=== PATIENT | female | born 1950 | race Caucasian/White ===

== ENCOUNTER 2017-05-05 22:54 | Emergency (ER) | payer SELFPAY ==
[~2017-05-05] VITALS: Ht 167.6 cm; Wt 115.0 kg
[~2017-05-05 22:54] MED LIST: ALL220TA PO; TRAM50 PO
[2017-05-05 23:04] VITALS: BP 191/101; PULSE 100; RESP 18; TEMP 98.2; O2SAT 96
[2017-05-06] MEDS ORDERED: LACTCAP8 PO (01:25)
[2017-05-06] MEDS ORDERED: HYDR-3516 PO (04:11)
[2017-05-06] MEDS ORDERED: ZOFR4TAB3 SL (04:11)
== END 2017-05-06 00:47 | disposition left against medical advice (07) ==
LOC: PHED 22:54
DX: Z53.21 Procedure and treatment not carried out due to patient leaving prior to being seen by health care provider (principal)
CPT/HCPCS: 99281

== ENCOUNTER 2017-05-06 01:13 | Emergency (ER) | payer SELFPAY ==
[~2017-05-06] VITALS: Ht 167.6 cm; Wt 115.0 kg
[2017-05-06 01:17] VITALS: BP 190/98; PULSE 96; RESP 22; TEMP 98.5; O2SAT 97
[2017-05-06] MEDS ORDERED: LACTCAP8 PO (01:25)
[2017-05-06 02:09] LABS: AUTOMATED NEUTROPHIL # 10.1 TH/MM3 (1.8-7.7); BASOPHIL # 0.1 TH/MM3 (0-0.2); BASOPHIL % 0.6 % (0.0-2.0); EOSINOPHIL % 0.3 % (0.0-4.0); HEMATOCRIT 44.4 % (35.0-46.0); HEMOGLOBIN 15.3 GM/DL (11.6-15.3); LYMPH % 9.8 % (9.0-44.0); LYMPHOCYTE # 1.2 TH/MM3 (1.0-4.8); MEAN CELL VOLUME 88.1 FL (80.0-100.0); MEAN CORPUSCULAR HEMOGLOBIN 30.3 PG (27.0-34.0); MEAN CORPUSCULAR HGB CONC 34.4 % (32.0-36.0); MEAN PLATELET VOLUME 7.5 FL (7.0-11.0); MONO % 7.2 % (0.0-8.0); MONOCYTE # 0.9 TH/MM3 (0-0.9); NEUT % 82.1 % (16.0-70.0); PLATELET COUNT 305 TH/MM3 (150-450); RED BLOOD COUNT 5.04 MIL/MM3 (4.00-5.30); RED CELL DISTRIBUTION WIDTH 14.1 % (11.6-17.2); WHITE BLOOD COUNT 12.3 TH/MM3 (4.0-11.0)
[2017-05-06 02:14] LABS: BACTERIA, URINE OCC /hpf; BILIRUBIN, URINE NEG (NEG); BLOOD, URINE TRACE (NEG); GLUCOSE,URINE NEG (NEG); KETONE, URINE NEG (NEG); NITRITE,URINE NEG (NEG); PH, URINE 5.5 (5.0-8.5); SQUAMOUS EPITHELIAL CELL URINE 5 /hpf (0-5); URINE COLOR YELLOW (YELLW/STRAW); URINE LEUKOCYTE ESTERASE SMALL (NEG)
[2017-05-06 02:16] VITALS: PULSE 103; RESP 22; O2SAT 98
--- NOTE | 2017-05-06 02:21 | RADRPT ---
EXAM DATE/TIME: 05/06/2017 01:58 [place] COMPARISON: CT ABDOMEN & PELVIS W/O CONTRAST, February 03, 2011, 6:39. INDICATIONS : Left flank pain. ORAL CONTRAST: No oral contrast ingested. RADIATION DOSE: 31.68 CTDIvol (mGy) MEDICAL HISTORY : Renal calculi. SURGICAL HISTORY : Hysterectomy. ENCOUNTER: Initial ACUITY: 1 day PAIN SCALE: 10/10 LOCATION: Left flank TECHNIQUE: Volumetric scanning of the abdomen and pelvis was performed. Using automated exposure control and ad justment of the mA and/or kV according to patient size, radiation dose was kept as low as reasonably achievable to obtain optimal diagnostic quality images. DICOM format image data is available electro nically for review and comparison. FINDINGS: Mild hepatic stenosis. Cholelithiasis. There is a nonobstructing 2 mm stone at the lower pole of righ t kidney and a 1 mm nonobstructing left lower pole calculus present. There is perinephric stranding a nd trace perinephric fluid left kidney. There is mild hydroureter, and a calculus is noted at the lef t ureterovesical junction measuring 3.9 mm on axial image 140. Diverticulosis of the sigmoid and desc ending colon without diverticulitis. Appendix is normal. Atherosclerotic calcifications of the aorta and iliac vessels are seen. Pancreas and spleen are unremarkable. Mild prominence of the left intrare nal collecting system. Lung bases are clear. Degenerative changes of the spine are noted. There is os teoarthritis of both hips right greater than left. There is a stable left adrenal myelolipoma. CONCLUSION: There is mild left pelviectasis and hydroureter secondary to an obstructing stone at the left uretero vesical junction. There is associated perinephric stranding and trace perinephric fluid. 2. Diverticu losis without diverticulitis. 3. Cholelithiasis. 4. Mild hepatic steatosis. 5. Left adrenal myelolipo ma is stable. 6. Nonobstructing renal calculi are noted bilaterally. Sanford Arredondo MD on May 06, 2017 at 2:15 Board Certified Radiologist. This report was verified electronically.
[2017-05-06 02:26] LABS: ALBUMIN 3.8 GM/DL (3.4-5.0); ALT (GPT) 28 U/L (10-53); AST (GOT) 17 U/L (15-37); BICARBONATE 24.8 MEQ/L (21.0-32.0); BLOOD UREA NITROGEN 25 MG/DL (7-18); CALCIUM 9.4 MG/DL (8.5-10.1); CHLORIDE 107 MEQ/L (98-107); CREATININE 1.13 MG/DL (0.50-1.00); GLOMERULAR FILTRATION RATE 48 ML/MIN (>89); GLUCOSE,RANDOM 143 MG/DL (74-106); SODIUM (NA) 140 MEQ/L (136-145)
[2017-05-06 02:29] LABS: ALKALINE PHOSPHATASE 82 U/L (45-117); TOTAL BILIRUBIN ADULT 0.3 MG/DL (0.2-1.0); TOTAL PROTEIN 7.7 GM/DL (6.4-8.2)
[2017-05-06] MEDS ORDERED: KETOROLAC TROMETHAMINE 30 MG/ML (IVP) VIAL IV PUSH ONE (02:30)
[2017-05-06] MEDS ORDERED: ONDANSETRON HCL 4 MG/2 ML VIAL IV ONE (02:30)
[2017-05-06] MEDS ORDERED: SODIUM CHLOR 0.9% 1000 ML INJ 1,000 ML IV ONE ×2 (02:30→02:45)
--- NOTE | 2017-05-06 02:38 | PD ---
HPI Chief Complaint: Flank/Kidney Pain Time Seen by Provider: 01:29 Travel History International Travel<30 days: No Contact w/Intl Traveler<30days: No Traveled to known affect area: No History of Present Illness HPI The patient is a 66 year old female who presents to the [facility] emergency department with a history of left flank pain that began at 9PM. The pain is sharp in character. She reports that the pain is severe. She reports that the pain is constant. She reports that 30 minutes ago began to move around to her abdomen. The patient reports having associated urinary frequency and urgency since the onset. She denies having any hematuria. She reports that she has had nausea and vomiting too many times to count since the onset. She denies having any diarrhea. She denies having any known fevers or chills. She reports that she does have a history of kidney stones. She reports that the symptoms are similar. Her last kidney stone was 7 years ago. She does not have a urologist currently. Otherwise on review of systems she denies having any cough or congestion, neck pain, chest pain, shortness of breath, or neurologic symptoms. [facility] Past Medical History Narrative Medical The patient's past medical history is significant for kidney stones- last 7 years ago, severe central spinal stenosis, OA, COPD. Depression: Yes COPD: Yes (BRONCHITIS) Kidney Stones: Yes Musculoskeletal: Yes (rt shoulder/bi lat hips/knees (pain- steroid shots)) Psychiatric: Yes (ATTEMPTED SUICIDE VIA OVERDOSE S/P 'S R/T GRIEF : 5 YRS AGO) Reproductive: Yes (ENDOMETRIOSIS) Pneumonia: Yes Menopausal: Yes Past Surgical History Narrative Surgical The patient's past surgical history is significant for hysterectomy, tonsillectomy. Hysterectomy: Yes Tonsillectomy: Yes Social History Alcohol Use: No Tobacco Use: Yes (1/2 PPD) Substance Use: No Allergies-Medications (Allergen,Severity, Reaction): Coded Allergies: diatrizoate meglumine (Unverified Allergy, Severe, 05/06/17) unkn gadobenic acid (Unverified Allergy, Severe, 05/06/17) unkn gadodiamide (Unverified Allergy, Severe, 05/06/17) unkn gadoteridol (Unverified Allergy, Severe, 05/06/17) unkn iodine (Unverified Allergy, Severe, 05/06/17) "almost " in 1978" iodixanol (Unverified Allergy, Severe, 05/06/17) unkn iohexol (Unverified Allergy, Severe, 05/06/17) unkn potassium iodide (Unverified Allergy, Severe, 05/06/17) "almost " in 1978" povidone-iodine (Unverified Allergy, Severe, 05/06/17) "almost " in 1978" pseudoephedrine (Unverified Allergy, Severe, 05/06/17) unkn sodium iodide (Unverified Allergy, Severe, 05/06/17) "almost " in 1978" sodium iodide (Unverified Allergy, Severe, 05/06/17) "almost " in 1978" Reported Meds & Prescriptions Reported Meds & Active Scripts Active Reported Probiotic (Lactobacillus Acidophilus) Unknown Strength Cap Unknown Dose PO TIDAC Review of Systems Except as stated in HPI: all other systems reviewed are Neg General / Constitutional: No: Fever Eyes: No: Visual changes HENT: No: Headaches Cardiovascular: No: Chest Pain or Discomfort Respiratory: No: Shortness of Breath Gastrointestinal: Positive: Nausea, Vomiting, No: Abdominal Pain Genitourinary: Positive: Urgency, Frequency, Flank Pain (left), No: Dysuria Musculoskeletal: No: Pain Skin: No Rash Neurologic: No: Weakness Psychiatric: No: Depression Endocrine: No: Polydipsia Hematologic/Lymphatic: No: Easy Bruising Physical Exam Narrative General: The patient is a well-developed well-nourished female, uncomfortable appearing on examination, writhing in the bed, moaning intermittently. Head and Neck exam: Head is normocephalic atraumatic. Eyes: EOMI, pupils are equal round and reactive to light. Nose: Midline septum with pink mucous membranes Mouth: Dentition unremarkable. Moist mucus membranes. Posterior oropharynx is not erythematous. No tonsillar hypertrophy. Uvula midline. Airway patent. Neck: No palpable lymphadenopathy. No nuchal rigidity. No thyromegaly. Cardiovascular: Sinus tachycardia in the low 100 without murmurs, gallops, or rubs. No pulse deficit to the extremities on simultaneous auscultation and palpation of her radial artery. Lungs: Clear to auscultation bilaterally. No wheezes, rhonchi, or rales. Abdomen: Soft, without tenderness to palpation in all 4 quadrants of the abdomen. No guarding, rebound, or rigidity. Normal bowel sounds are audible. No tenderness on palpation of McBurney's point. Extremities: No clubbing, cyanosis, or edema. 2+ pulses in all 4 extremities. Back: No spinous process tenderness to palpation. Left-sided CVA tenderness on palpation. Neurologic Exam: Grossly nonfocal. Skin Exam: No rash noted. Intact skin that is warm and dry. Data Data Last Documented VS Vital Signs Date Time Temp Pulse Resp B/P (MAP) Pulse Ox O2 Delivery O2 Flow Rate FiO2 05/06/17 02:16 103 22 98 Room Air 05/06/17 01:17 98.5 Orders Orders Electrocardiogram (05/06/17 01:51) Complete Blood Count With Diff (05/06/17 01:51) Comprehensive Metabolic Panel (05/06/17 01:51) Lipase (05/06/17 01:51) Urinalysis - C+S If Indicated (05/06/17 01:51) Magnesium (Mg) (05/06/17 01:51) Ct Abd/Pel W/O Iv Contrast (05/06/17 01:51) Iv Access Insert/Monitor (05/06/17 01:51) Ecg Monitoring (05/06/17 01:51) Oximetry (05/06/17 01:51) Urine Culture (05/06/17 02:00) Sodium Chlor 0.9% 1000 Ml Inj (Ns 1000 M (05/06/17 02:30) Ondansetron Inj (Zofran Inj) (05/06/17 02:30) Ketorolac Inj (Toradol Inj) (05/06/17 02:30) Sodium Chlor 0.9% 1000 Ml Inj (Ns 1000 M (05/06/17 02:45) Prochlorperazine Inj (Compazine Inj) (05/06/17 02:45) Morphine Inj (Morphine Inj) (05/06/17 02:45) Labs Laboratory Tests Test 05/06/17 02:00 White Blood Count 12.3 TH/MM3 Red Blood Count 5.04 MIL/MM3 Hemoglobin 15.3 GM/DL Hematocrit 44.4 % Mean Corpuscular Volume 88.1 FL Mean Corpuscular Hemoglobin 30.3 PG Mean Corpuscular Hemoglobin Concent 34.4 % Red Cell Distribution Width 14.1 % Platelet Count 305 TH/MM3 Mean Platelet Volume 7.5 FL Neutrophils (%) (Auto) 82.1 % Lymphocytes (%) (Auto) 9.8 % Monocytes (%) (Auto) 7.2 % Eosinophils (%) (Auto) 0.3 % Basophils (%) (Auto) 0.6 % Neutrophils # (Auto) 10.1 TH/MM3 Lymphocytes # (Auto) 1.2 TH/MM3 Monocytes # (Auto) 0.9 TH/MM3 Eosinophils # (Auto) 0.0 TH/MM3 Basophils # (Auto) 0.1 TH/MM3 CBC Comment DIFF FINAL Differential Comment Urine Color YELLOW Urine Turbidity HAZY Urine pH 5.5 Urine Specific [place] 1.023 Urine Protein TRACE mg/dL Urine Glucose (UA) NEG mg/dL Urine Ketones NEG mg/dL Urine Occult Blood TRACE Urine Nitrite NEG Urine Bilirubin NEG Urine Urobilinogen LESS THAN 2.0 MG/DL Urine Leukocyte Esterase SMALL Urine RBC 5 /hpf Urine WBC 20 /hpf Urine Squamous Epithelial Cells 5 /hpf Urine Bacteria OCC /hpf Microscopic Urinalysis Comment CULTURE INDICATED Blood Urea Nitrogen 25 MG/DL Creatinine 1.13 MG/DL Random Glucose 143 MG/DL Total Protein 7.7 GM/DL Albumin 3.8 GM/DL Calcium Level 9.4 MG/DL Magnesium Level 2.0 MG/DL Alkaline Phosphatase 82 U/L Aspartate Amino Transf (AST/SGOT) 17 U/L Alanine Aminotransferase (ALT/SGPT) 28 U/L Total Bilirubin 0.3 MG/DL Sodium Level 140 MEQ/L Potassium Level 3.9 MEQ/L Chloride Level 107 MEQ/L Carbon Dioxide Level 24.8 MEQ/L Anion Gap 8 MEQ/L Estimat Glomerular Filtration Rate 48 ML/MIN Lipase 177 U/L [facility] Medical Decision Making Medical Screen Exam Complete: Yes Emergency Medical Condition: Yes Medical Record Reviewed: Yes Interpretation(s) Last Impressions Abdomen/Pelvis CT 05/06/17 0151 Signed Impressions: Service Date/Time: Saturday, May 06, 2017 01:58 - CONCLUSION: There is mild left pelviectasis and hydroureter secondary to an obstructing stone at the left ureterovesical junction. There is associated perinephric stranding and trace perinephric fluid. 2. Diverticulosis without diverticulitis. 3. Cholelithiasis. 4. Mild hepatic steatosis. 5. Left adrenal myelolipoma is stable. 6. Nonobstructing renal calculi are noted bilaterally. Sanford Arredondo MD Differential Diagnosis Pyelonephritis, versus kidney stone, versus musculoskeletal strain Narrative Course During the course of the patient's emergency department visit, the patient's history, examination, and differential diagnosis were reviewed with the patient. The patient was placed on a silver wrapper with oximetry and frequent blood pressure monitoring. The patient had IV access obtained and blood work sent for analysis. The patient was initially provided normal saline 1 L IV fluid bolus, Toradol 15 mg IV, Zofran 4 mg IV. Patient continued to have discomfort and was given morphine 4 mg IV, Compazine 5 mg IV and a second liter of normal saline IV fluids per The patient's laboratory studies were reviewed and remarkable for A white count of 12.3, hemoglobin 15.3, platelets 305 with neutrophils 82.1, CMP is remarkable for BUN of 25, creatinine 1.13, glucose 143, lipase 177, urinalysis shows small leukocyte esterase 5, 5 RBCs, 20 WBCs, occasional bacteria. Radiology studies were reviewed and remarkable for a CT scan of the abdomen and pelvis that shows there is a mild left pelviectasis and hydroureter secondary to an obstructing stone at the left UVJ. There is associated perinephric stranding and trace perinephric fluid. Diverticulosis without diverticulitis, cholelithiasis, mild hepatic steatosis, left adrenal myelolipoma that is stable , nonobstructing renal calculi are also noted bilaterally. The patient on reexamination is reportedly feeling improved. The patient was instructed regarding the importance of following up with a urologist. The patient has been able to tolerate sips of fluid. The patient will be discharged home with a prescription for pain medication and nausea medication. The patient is resting comfortably and feels better, is alert and in no distress. The patient's results and examination findings were discussed with the patient. The repeat examination is unremarkable and benign. The history, exam, diagnostic testing, and current condition do not suggest any significant pathology to warrant further testing, continued ED treatment, admission, or surgical evaluation at this point. The vital signs have been stable. The patient does not have uncontrollable pain, intractable vomiting, or other significant symptoms. The patient's condition is stable and appropriate for discharge. The patient will pursue further outpatient evaluation with a primary care physician or other designated or consulting physician as indicated in the discharge instructions. The patient expressed understanding and was agreeable with this plan. Diagnosis Primary Impression: Ureteral calculi Referrals: Jason Yuan MD call for appointment [facility] 2 days Patient Instructions: General Instructions Med/Other Pt SpecificInfo: Prescription(s) given Scripts Ondansetron Odt (Zofran Odt) 4 Mg Tab 4 MG SL Q6HR Y for Nausea/Vomiting, #7 TAB 0 Refills Prov: Jackie Gonzalez MD 05/06/17 Hydrocodone-Acetaminophen (Hydrocodone-Acetaminophen) 5-325 mg Tab 1 TAB PO Q6H Y for PAIN, #12 TAB 0 Refills Prov: Jackie Gonzalez MD 05/06/17 Disposition: 01 DISCHARGE HOME Condition: Stable Jackie Gonzalez MD May 06, 2017 02:38
[2017-05-06] MEDS ORDERED: MORPHINE SULFATE 4 MG/ML INJ IV PUSH ONE (02:45)
[2017-05-06] MEDS ORDERED: PROCHLORPERAZINE INJ 10 MG/2 ML VIAL IV PUSH ONE (02:45)
[2017-05-06 04:07] VITALS: BP 177/74
[2017-05-06] MEDS ORDERED: HYDR-3516 PO (04:11)
[2017-05-06] MEDS ORDERED: ZOFR4TAB3 SL (04:11)
--- NOTE | 2017-05-06 21:19 | EKG ---
Date Performed: 05/06/2017 Time Performed: 02:33:48 PTAGE: 66 years EKG: Sinus rhythm WITH SINUS ARRHYTHMIA NORMAL ECG PREVIOUS TRACING : 06/01/2013 08.41 Since the prior tracing, there has been no significant [place] DOCTOR: Osiel Lynn Interpretating Date/Time 05/06/2017 21:17:40
== END 2017-05-06 04:24 | disposition home or self-care (01) ==
LOC: NEPE 01:13
DX: N20.2 Calculus of kidney with calculus of ureter (principal); N13.4 Hydroureter; B96.20 Unspecified Escherichia coli [E. coli] as the cause of diseases classified elsewhere; K57.90 Diverticulosis of intestine, part unspecified, without perforation or abscess without bleeding; K80.20 Calculus of gallbladder without cholecystitis without obstruction; K76.0 Fatty (change of) liver, not elsewhere classified; I49.9 Cardiac arrhythmia, unspecified; J44.9 Chronic obstructive pulmonary disease, unspecified; Z87.442 Personal history of urinary calculi
CPT/HCPCS: 74176; 80053; 81001; 83690; 83735; 85025; 87077; 87086; 87186; 93005; 96361; 96374; 96375; 99285; J0780; J1885; J2270; J2405; J7030

== ENCOUNTER 2017-10-03 20:38 | Inpatient (IN) ==
--- NOTE | 2017-10-03 21:46 | ED ---
HPI General Chief complaint: Respiratory Symptoms Stated complaint: SOB/Vomiting Time Seen by Provider: 10/03/17 21:32 History of Present Illness HPI narrative: Patient has recently been diagnosed with breast mass that has biopsied and they think it could be cancer she is not receiving any treatment at this time she has been having vomiting nausea for the last few days and then suddenly she had an onset of shortness of breath she comes in tachycardic short of breath he satting patient reports having an allergy to IV contrast which prevents me from doing a CT a to rule out a PE I am doing a d-dimer and labs and giving her oxygen she is on 5 L but still seems to be short of breath I am putting her on Ventimask will evaluate for pulmonary embolism versus pneumonia versus anxiety versus other Related Data Home Medications Medication Instructions Recorded Confirmed albuterol sulfate 2.5 mg INHALATION Q4H PRN 10/03/17 10/03/17 lorazepam 2 mg PO DAILY 10/03/17 10/03/17 morphine 15 mg PO Q4-6H PRN 10/03/17 10/03/17 morphine 20 mg PO Q12H 10/03/17 10/03/17 sulfamethoxazole-trimethoprim 1 tab PO BID 10/03/17 10/03/17 Allergies Allergy/AdvReac Type Severity Reaction Status Date / Time diatrizoate meglumine Allergy Severe Unverified 05/06/17 01:24 gadobenic acid Allergy Severe Unverified 05/06/17 01:24 gadodiamide Allergy Severe Unverified 05/06/17 01:24 gadoteridol Allergy Severe Unverified 05/06/17 01:24 iodine Allergy Severe Unverified 05/06/17 01:24 iodixanol Allergy Severe Unverified 05/06/17 01:24 iohexol Allergy Severe Unverified 05/06/17 01:24 potassium iodide Allergy Severe Unverified 05/06/17 01:24 povidone-iodine Allergy Severe Unverified 05/06/17 01:24 pseudoephedrine Allergy Severe Unverified 05/06/17 01:24 sodium iodide Allergy Severe Unverified 05/06/17 01:24 sodium iodide Allergy Severe Unverified 05/06/17 01:24 Review of Systems Except as stated in HPI: all other systems reviewed are negative Respiratory Reports dyspnea and Reports dyspnea on exertion PMFSH Medical History Medical History Osteoarthritis (Chronic) COPD (chronic obstructive pulmonary disease) (Chronic) Surgical History Surgical History History of hysterectomy (Resolved) H/O right breast biopsy (Acute) Family History Family History Other Unknown family medical history Social History Social History Substance History: No History of Abuse Second Hand Smoke Exposure: No Smoking Status: Former smoker Tobacco Type: Cigarettes How Often Do You Have a Drink Containing Alcohol: Never Recent Travel in [facility] within the Last 8 Weeks: No Recent Out of Country Travel within the Last 8 Weeks: No Immunization History Tetanus Immunization: Unsure Hx Influenza Vaccine This Season: No Exam Narrative Exam Narrative: GENERAL: pt is in resp distress tachypnic and tachycardic with Hx of likely breast CA SKIN: Warm and dry. HEAD: Atraumatic. Normocephalic. EYES: Pupils equal and round. No scleral icterus. No injection or drainage. ENT: No nasal bleeding or discharge. Mucous membranes pink and moist. NECK: Trachea midline. No JVD. CARDIOVASCULAR: sinus tachycardic and rhythm. RESPIRATORY: + accessory muscle use. Clear to auscultation. Breath sounds equal bilaterally. GASTROINTESTINAL: Abdomen soft, non-tender, nondistended. Hepatic and splenic margins not palpable. MUSCULOSKELETAL: Extremities without clubbing, cyanosis, or edema. No obvious deformities. NEUROLOGICAL: Awake and alert. No obvious cranial nerve deficits. Motor grossly within normal limits. Five out of 5 muscle strength in the arms and legs. Normal speech. PSYCHIATRIC: appears anxious over her resp sitauaiton Course Initial Documented Vital Signs Temperature 97.6 F 10/03/17 20:45 Pulse Rate 118 H 10/03/17 20:45 Respiratory Rate 24 10/03/17 20:45 Blood Pressure 182/85 H 10/03/17 20:45 Pulse Oximetry 92 L 10/03/17 20:45 Last Documented Vital Signs Temperature 97.6 F 10/08/17 20:10 Pulse Rate 73 10/08/17 20:10 Respiratory Rate 17 10/08/17 20:10 Blood Pressure 144/86 H 10/08/17 20:10 Pulse Oximetry 92 L 10/08/17 20:10 Medical Decision Making MDM Narrative Medical decision making narrative: pt is high possiblitiy of PE if CA breast recently Dx , She however is allergic to IV contrast. I weigh the risk benefit of lovenox to anticoagulate if DVT PE is happenening and I decide to give lovenox and Pulmonary consult in AM and VQ scan possible is pt can tolerate the isotope . admitted to medicine Dr Ruby take pt Differential Diagnosis Differential Diagnosis: PULMONARY EMBOLISM with recent CA likely and tachy tachypnic , vs anxirty attack vs broanchitis vs SVT overstimulation with albuterol other Lab Data Result diagrams: 10/06/17 05:47 10/06/17 05:47 Lab Results 10/03/17 10/03/17 10/03/17 Range/Units 21:45 21:45 21:45 WBC 11.2 H (4.0-11.0) th/mm3 RBC 5.13 (4.00-5.30) mil/mm3 Hgb 15.2 (11.6-15.3) gm/dL Hct 45.7 (35.0-46.0) % MCV 89.1 (80.0-100.0) fL MCH 29.7 (27.0-34.0) pg MCHC 33.3 (32.0-36.0) % RDW 13.9 (11.6-17.2) % Plt Count 336 (150-450) th/mm3 MPV 8.0 (7.0-11.0) fL Neut % (Auto) 68.4 (16.0-70.0) % Lymph % (Auto) 16.7 (9.0-44.0) % Mathews % (Auto) 13.2 H (0.0-8.0) % Eos % (Auto) 0.9 (0.0-4.0) % Baso % (Auto) 0.8 (0.0-2.0) % Neut # (Auto) 7.7 (1.8-7.7) th/mm3 Lymph # (Auto) 1.9 (1.0-4.8) th/mm3 Mathews # (Auto) 1.5 H (0.0-0.9) th/mm3 Eos # (Auto) 0.1 (0.0-0.4) th/mm3 Baso # (Auto) 0.1 (0.0-0.2) th/mm3 WBC Differential . Differential Comment Auto diff final D-Dimer Quant (PE/DVT) 1.86 H (0.00-0.50) mg/L FEU Puncture Site Patient Temperature O2 Saturation (90-100) % ABG pH (7.380-7.420) ABG pCO2 (38-42) mmHg ABG pO2 (61-120) mmHg ABG HCO3 (22-26) mmol/L ABG O2 Content (12.0-20.0) Vol % ABG Base Excess (-2-2) mmol/L ABG Methemoglobin (0-2) % Juve Test Hemoglobin (12.0-16.0) G/DL Carboxyhemoglobin (0-4) % O2 Delivery Device Liter Flow L/M Inspired O2 % Critical Value Sodium 130 L (136-145) meq/L Potassium 4.4 (3.5-5.1) meq/L Chloride 94 L (98-107) meq/L Carbon Dioxide 22.9 (21.0-32.0) meq/L Anion Gap 13 (5-15) meq/L BUN 24 H (7-18) mg/dL Creatinine 1.25 H (0.50-1.00) mg/dL Estimated GFR 43 L (>89) mL/min Random Glucose 118 H (74-106) mg/dL Calcium 12.7 H* (8.5-10.1) mg/dL Prot Corrected Calcium 12.1 H* (8.5-10.1) mg/dL Total Bilirubin 0.8 (0.2-1.0) mg/dL AST 55 H (15-37) U/L ALT 23 (10-53) U/L Alkaline Phosphatase 98 (45-117) U/L Total Protein 8.0 (6.4-8.2) g/dL Albumin 3.4 (3.4-5.0) g/dL 10/04/17 10/04/17 10/04/17 Range/Units 07:13 07:15 16:35 WBC 8.2 (4.0-11.0) th/mm3 RBC 4.83 (4.00-5.30) mil/mm3 Hgb 14.7 (11.6-15.3) gm/dL Hct 43.3 (35.0-46.0) % MCV 89.7 (80.0-100.0) fL MCH 30.5 (27.0-34.0) pg MCHC 34.0 (32.0-36.0) % RDW 13.8 (11.6-17.2) % Plt Count 283 (150-450) th/mm3 MPV 7.6 (7.0-11.0) fL Neut % (Auto) 86.6 H (16.0-70.0) % Lymph % (Auto) 9.8 (9.0-44.0) % Mathews % (Auto) 2.9 (0.0-8.0) % Eos % (Auto) 0.3 (0.0-4.0) % Baso % (Auto) 0.4 (0.0-2.0) % Neut # (Auto) 7.1 (1.8-7.7) th/mm3 Lymph # (Auto) 0.8 L (1.0-4.8) th/mm3 Mathews # (Auto) 0.2 (0.0-0.9) th/mm3 Eos # (Auto) 0.0 (0.0-0.4) th/mm3 Baso # (Auto) 0.0 (0.0-0.2) th/mm3 WBC Differential . Differential Comment Auto diff final D-Dimer Quant (PE/DVT) (0.00-0.50) mg/L FEU Puncture Site Patient Temperature O2 Saturation (90-100) % ABG pH (7.380-7.420) ABG pCO2 (38-42) mmHg ABG pO2 (61-120) mmHg ABG HCO3 (22-26) mmol/L ABG O2 Content (12.0-20.0) Vol % ABG Base Excess (-2-2) mmol/L ABG Methemoglobin (0-2) % Juve Test Hemoglobin (12.0-16.0) G/DL Carboxyhemoglobin (0-4) % O2 Delivery Device Liter Flow L/M Inspired O2 % Critical Value Sodium 133 L 134 L (136-145) meq/L Potassium 4.9 4.7 (3.5-5.1) meq/L Chloride 99 101 (98-107) meq/L Carbon Dioxide 21.5 22.5 (21.0-32.0) meq/L Anion Gap 13 11 (5-15) meq/L BUN 25 H 24 H (7-18) mg/dL Creatinine 1.11 H 0.96 (0.50-1.00) mg/dL Estimated GFR 49 L 58 L (>89) mL/min Random Glucose 116 H 122 H (74-106) mg/dL Calcium 12.0 H* 10.9 H D (8.5-10.1) mg/dL Prot Corrected Calcium 11.7 H* (8.5-10.1) mg/dL Total Bilirubin 0.7 (0.2-1.0) mg/dL AST 53 H (15-37) U/L ALT 23 (10-53) U/L Alkaline Phosphatase 94 (45-117) U/L Total Protein 7.6 (6.4-8.2) g/dL Albumin 3.1 L (3.4-5.0) g/dL 10/04/17 10/05/17 10/06/17 Range/Units 21:01 13:00 05:47 WBC 14.2 H (4.0-11.0) th/mm3 RBC 4.54 (4.00-5.30) mil/mm3 Hgb 13.4 (11.6-15.3) gm/dL Hct 40.8 (35.0-46.0) % MCV 89.8 (80.0-100.0) fL MCH 29.5 (27.0-34.0) pg MCHC 32.8 (32.0-36.0) % RDW 14.1 (11.6-17.2) % Plt Count 298 (150-450) th/mm3 MPV 7.6 (7.0-11.0) fL Neut % (Auto) (16.0-70.0) % Lymph % (Auto) (9.0-44.0) % Mathews % (Auto) (0.0-8.0) % Eos % (Auto) (0.0-4.0) % Baso % (Auto) (0.0-2.0) % Neut # (Auto) (1.8-7.7) th/mm3 Lymph # (Auto) (1.0-4.8) th/mm3 Mathews # (Auto) (0.0-0.9) th/mm3 Eos # (Auto) (0.0-0.4) th/mm3 Baso # (Auto) (0.0-0.2) th/mm3 WBC Differential Differential Comment D-Dimer Quant (PE/DVT) (0.00-0.50) mg/L FEU Puncture Site Left radial Patient Temperature 98.6 O2 Saturation 90 (90-100) % ABG pH 7.38 (7.380-7.420) ABG pCO2 41 (38-42) mmHg ABG pO2 67 (61-120) mmHg ABG HCO3 23 (22-26) mmol/L ABG O2 Content 17.7 (12.0-20.0) Vol % ABG Base Excess -1.0 (-2-2) mmol/L ABG Methemoglobin 0.9 (0-2) % Juve Test Present Hemoglobin 14.0 (12.0-16.0) G/DL Carboxyhemoglobin 0.8 (0-4) % O2 Delivery Device Nasal cannula Liter Flow 4.00 L/M Inspired O2 21 % Critical Value No Sodium 138 (136-145) meq/L Potassium 4.1 (3.5-5.1) meq/L Chloride 103 (98-107) meq/L Carbon Dioxide 22.2 (21.0-32.0) meq/L Anion Gap 13 (5-15) meq/L BUN 25 H (7-18) mg/dL Creatinine 0.84 (0.50-1.00) mg/dL Estimated GFR 68 L (>89) mL/min Random Glucose 115 H (74-106) mg/dL Calcium 10.9 H (8.5-10.1) mg/dL Prot Corrected Calcium (8.5-10.1) mg/dL Total Bilirubin (0.2-1.0) mg/dL AST (15-37) U/L ALT (10-53) U/L Alkaline Phosphatase (45-117) U/L Total Protein (6.4-8.2) g/dL Albumin (3.4-5.0) g/dL 10/06/17 Range/Units 05:47 WBC (4.0-11.0) th/mm3 RBC (4.00-5.30) mil/mm3 Hgb (11.6-15.3) gm/dL Hct (35.0-46.0) % MCV (80.0-100.0) fL MCH (27.0-34.0) pg MCHC (32.0-36.0) % RDW (11.6-17.2) % Plt Count (150-450) th/mm3 MPV (7.0-11.0) fL Neut % (Auto) (16.0-70.0) % Lymph % (Auto) (9.0-44.0) % Mathews % (Auto) (0.0-8.0) % Eos % (Auto) (0.0-4.0) % Baso % (Auto) (0.0-2.0) % Neut # (Auto) (1.8-7.7) th/mm3 Lymph # (Auto) (1.0-4.8) th/mm3 Mathews # (Auto) (0.0-0.9) th/mm3 Eos # (Auto) (0.0-0.4) th/mm3 Baso # (Auto) (0.0-0.2) th/mm3 WBC Differential Differential Comment D-Dimer Quant (PE/DVT) (0.00-0.50) mg/L FEU Puncture Site Patient Temperature O2 Saturation (90-100) % ABG pH (7.380-7.420) ABG pCO2 (38-42) mmHg ABG pO2 (61-120) mmHg ABG HCO3 (22-26) mmol/L ABG O2 Content (12.0-20.0) Vol % ABG Base Excess (-2-2) mmol/L ABG Methemoglobin (0-2) % Juve Test Hemoglobin (12.0-16.0) G/DL Carboxyhemoglobin (0-4) % O2 Delivery Device Liter Flow L/M Inspired O2 % Critical Value Sodium 140 (136-145) meq/L Potassium 4.0 (3.5-5.1) meq/L Chloride 107 (98-107) meq/L Carbon Dioxide 21.6 (21.0-32.0) meq/L Anion Gap 11 (5-15) meq/L BUN 24 H (7-18) mg/dL Creatinine 0.72 (0.50-1.00) mg/dL Estimated GFR 81 L (>89) mL/min Random Glucose 105 (74-106) mg/dL Calcium 11.0 H (8.5-10.1) mg/dL Prot Corrected Calcium (8.5-10.1) mg/dL Total Bilirubin (0.2-1.0) mg/dL AST (15-37) U/L ALT (10-53) U/L Alkaline Phosphatase (45-117) U/L Total Protein (6.4-8.2) g/dL Albumin (3.4-5.0) g/dL Imaging Data Radiologist's impression: Chest X-Ray 10/03/17 21:32 CONCLUSION: Masslike density in the AP window region concerning for a central mass. Suggestion of multiple pulmonary nodules. CT examination the chest would be recommended for further evaluation. Ideally this would be performed with contrast given the potential central mass. Pulmonary Perfusion Imaging 10/04/17 00:00 CONCLUSION: 1. Low probability of pulmonary embolism Chest CT 10/04/17 00:12 CONCLUSION: Widespread neoplastic disease involving lungs, mediastinum, right breast, chest and abdominal wall, liver and upper abdomen as described. Abdomen/Pelvis CT 10/05/17 00:00 CONCLUSION: 1. Abnormal examination demonstrating multiple pulmonary nodules, multiple subcutaneous nodules, and 2 nodules in the right retroperitoneum and lateral to the left adrenal gland. The distribution and number of abnormalities suggest hematogenous process such as metastatic disease. Head CT 10/05/17 00:00 CONCLUSION: 1. Abnormal noncontrast CT brain demonstrating 2 or 3 masses in the left supratentorial brain. Recommend further characterization of these lesions and to evaluate for additional lesions using MRI of the brain with and without contrast. Bone Scan Nuclear Medicine 10/06/17 06:00 CONCLUSION: 1. There are areas of uptake within multiple bony structures most likely degenerative and possibly due to old trauma. No definite convincing evidence for metastatic disease based on this examination. Discharge Plan Discharge Disposition Patient Disposition: 30 Still Patient Discharge Condition Condition: Serious Discharge Order Discharge Orders: Discharge Order (Routine); Ordered 10/08/17 Ordered By: Radha Marrufo Physicians Team ED Provider: Mario Alberto Tse Primary Care Provider: UNKNOWN, Attending Provider: Radha Marrufo Other Providers: Cele Massey ; Spencer Burton ; Shruti Bahena ; Enoch Johnson Discharge Interventions Interventions: ED Discharge Assessment Last Done: 10/04/17 03:46 Vital Signs Last Done: 10/04/17 00:29 Status ED Status: Left Department Discharge Information Discharge Date/Time: 10/04/17 03:47
[2017-10-03 22:05] LABS: Baso # (Auto) 0.1 th/mm3 (0.0-0.2); Baso % (Auto) 0.8 % (0.0-2.0); Eos # (Auto) 0.1 th/mm3 (0.0-0.4); Eos % (Auto) 0.9 % (0.0-4.0); Hematocrit 45.7 % (35.0-46.0); Hemoglobin 15.2 gm/dL (11.6-15.3); Lymph # (Auto) 1.9 th/mm3 (1.0-4.8); Lymph % (Auto) 16.7 % (9.0-44.0); Mean Corpuscular HGB Conc 33.3 % (32.0-36.0); Mean Corpuscular Hemoglobin 29.7 pg (27.0-34.0); Mean Corpuscular Volume 89.1 fL (80.0-100.0); Mono # (Auto) 1.5 th/mm3 (0.0-0.9); Mono % (Auto) 13.2 % (0.0-8.0); Neut # (Auto) 7.7 th/mm3 (1.8-7.7); Neut % (Auto) 68.4 % (16.0-70.0); Platelet Count 336 th/mm3 (150-450); Red Blood Count 5.13 mil/mm3 (4.00-5.30); Red Cell Distribution Width 13.9 % (11.6-17.2); White Blood Count 11.2 th/mm3 (4.0-11.0)
--- NOTE | 2017-10-03 22:15 | XR ---
EXAM DATE: 10/03/2017 10:09 PM EDT AGE/SEX: 67 years / Female INDICATIONS: Shortness of breath. CLINICAL DATA: This is the patient's initial encounter. Patient reports that signs and symptoms have been present for 1 day and indicates a pain score of 4/10. MEDICAL/SURGICAL HISTORY: . Renal calculi Hysterectomy. COMPARISON: No prior exams available for comparison. FINDINGS: There is increased density in the AP window region. The heart size is normal. There appear to be mass es seen in the lungs bilaterally. No effusion is seen. CONCLUSION: Masslike density in the AP window region concerning for a central mass. Suggestion of multiple pulmonary nodules. CT examination the chest would be recommended for further evaluation. Ideally this would be performed with contrast given the potential central mass. Electronically signed by: Mau Tsai MD 10/03/2017 10:13 PM EDT
[2017-10-03 22:27] LABS: Albumin 3.4 g/dL (3.4-5.0); Calcium 12.7 mg/dL (8.5-10.1); Carbon Dioxide 22.9 meq/L (21.0-32.0); Potassium 4.4 meq/L (3.5-5.1)
[2017-10-03] MEDS ORDERED: Sod Chloride 0.9% Inj 1,000 ML IV.SIG ONE (22:34)
[2017-10-04] MEDS ORDERED: Morphine Inj 4 MG/ML Vial IV.PUSH ONE (01:04)
[2017-10-04] MEDS ORDERED: Morphine Sulfate 15 MG IR Tablet PO PRN (01:30)
[2017-10-04] MEDS ORDERED: Morphine Inj 4 MG/ML Vial IV.PUSH PRN (01:31)
[2017-10-04] MEDS ORDERED: Acetaminophen 325 MG Tablet PO PRN (01:34)
[2017-10-04] MEDS ORDERED: Bisacodyl 10 MG Supp RECTAL PRN (01:34)
--- NOTE | 2017-10-04 01:43 | CT ---
EXAM DATE: 10/04/2017 1:05 AM EDT AGE/SEX: 67 years / Female INDICATIONS: Shortness of breath. CLINICAL DATA: This is the patient's initial encounter. Patient reports that signs and symptoms have been present for 3 days and indicates a pain score of 5/10. MEDICAL/SURGICAL HISTORY: Chronic obstructive pulmonary disease. Hysterectomy. RADIATION DOSE: 19.81 CTDI (mGy) COMPARISON: [facility] [place], CT ABDOMEN & PELVIS W/O CONTRAST, 05/06/2017. . TECHNIQUE: Multiple contiguous axial images were obtained through the chest without contrast. Image s were obtained in suspended respiration using multiple row detector helical technique. Using automa janet exposure control and adjustment of the mA and/or kV according to patient size, radiation dose was kept as low as reasonably achievable to obtain optimal diagnostic quality images. DICOM format imag e data is available electronically for review and comparison. FINDINGS: There is a greater than 5 cm left hilar mass. There is contiguous mediastinal adenopathy and enlarged nodes also present in the prevascular, pretracheal and subcarinal tello compartments. There are innu merable bilateral pulmonary metastases. There is a slightly greater than 3 cm mass in the upper medial right breast region and innumerable swartz bcutaneous nodules and masses present involving the visualized chest and abdominal wall. In the visualized upper abdomen, there appear to be multiple low density liver masses. Stones and slu dge debris in the gallbladder. 2.4 cm left adrenal mass CONCLUSION: Widespread neoplastic disease involving lungs, mediastinum, right breast, chest and abdominal wall, l iver and upper abdomen as described. Electronically signed by: Mau Santiago MD 10/04/2017 1:42 AM EDT
[2017-10-04] MEDS ORDERED: MORPHINE PO SCH ×2 (01:45→09:00)
[2017-10-04] MEDS ORDERED: Enoxaparin Inj 100 MG/ML Syringe SQ ONE (01:47)
[2017-10-04] MEDS ORDERED: MethylPREDNISolone Sod Succinate Inj 125 MG/2 ML Vial IV.PUSH ONE (01:48)
--- NOTE | 2017-10-04 02:39 | P.HPIM ---
History of Present Illness Primary Care Physician: UNKNOWN History of Present Illness: This is a 67-year-old female with a PMH of COPD and recent diagnosis of Breast Mass with metastatic Disease who presents to ER with complaints of SOB and productive cough x1 wk. Seen in ER on 09/20/17 for c/o shoulder pain, d/c'd w/ Flexeril and Lidoderm patches. States symptoms persisted and was seen at and found to have breast mass w/ liver and lung lesions, currently undergoing work up, not yet on chemotherapy. Now w/ progressive SOB, notes associated wheezing and productive cough w/ green-colored sputum. No sick contacts. On arrival, O2 sat 80% on RA per report. BP 182/85, HR 118, Afebrile. WBC 11.2. Ca 12.7. Creatinine 1.25. D-dimer 1.86. CXR w/ masslike density concerning for central mass, multiple pulmonary nodules. CTA not done due to severe contrast allergy. CT Chest w/ widespread metastatic disease involving lung, mediastinum, right breast, chest and abdominal wall, liver and upper abdomen. - Diagnosis (1) COPD (chronic obstructive pulmonary disease) (2) Hypoxia (3) Metastatic disease (4) Hypercalcemia (5) Renal insufficiency Inpatient Certification: I certify that the inpatient services were ordered in accordance with Medicare regulations governing the order. This includes certification that hospital inpatient services are reasonable and necessary and in the case of services not specified as inpatient-only under 42 CFR 419.22(n), that they are appropriately provided as inpatient services in accordance to with the 2-midnight benchmark under 43 CFR 412.3(e) Estimated Total Length of Stay (Days): 2 Plans for Post Hospital Care: Not yet determined Review of Systems All other systems reviewed negative except as stated in [facility] - History History Provided By: Patient - Medical History Medical History: Medical History (Last Updated 09/20/17 @ 09:38 by Peg Joy MD) Osteoarthritis (Chronic) COPD (chronic obstructive pulmonary disease) (Chronic) - Surgical History Surgical History: Surgical History (Last Updated 09/20/17 @ 09:38 by Peg Joy MD) History of hysterectomy (Resolved) - Tobacco History Second Hand Smoke Exposure: Yes Tobacco Use In Past 30 Days: Yes Smoking Status: Current every day smoker Tobacco Type: Cigarettes - Alcohol History How Often Do You Have a Drink Containing Alcohol: Never - Substance Use History Substance History: No History of Abuse - Travel History Recent Travel in the [place] Within the Last 8 Weeks: No Recent Travel Out of the Country Within the Last 8 Weeks: No - Immunization History Tetanus Immunization: Unsure Hx Influenza Vaccine This Season: No Medications and Allergies Active Medications: Active Medications Acetaminophen (Tylenol) 650 mg PO Q4H PRN PRN Reason: Temp > 100.4 Al Hydroxide/Mg Hydroxide (Milk Of Magnesia Liq) 30 ml PO Q12H PRN PRN Reason: Mild Constipation Albuterol (Duoneb Neb (Prn)) 1 ampul NEB Q4HR NEB PRN PRN Reason: SOB/WHEEZING Bisacodyl (Dulcolax Supp) 10 mg RECTAL DAILY PRN PRN Reason: SEVERE CONSITIPATION Enoxaparin Sodium (Lovenox Inj) 110 mg SQ Q12H MAX Sodium Chloride (Ns Inj) 1,000 mls @ 100 mls/hr IV.CONT .Q10H MAX Levofloxacin/Dextrose (Levaquin 750 Mg Premix Inj) 150 mls @ 100 mls/hr IV.SIG Q48H MAX Lactulose (Lactulose Liq) 30 ml PO DAILY PRN PRN Reason: SEVERE CONSITIPATION Lorazepam (Ativan Inj) 1 mg IV.PUSH Q4H PRN PRN Reason: AGITATION/ANXIETY Methylprednisolone Sodium Succinate (Solumedrol Inj) 40 mg IV.PUSH Q6H MAX Metoclopramide HCl (Reglan Inj) 5 mg IV.PUSH Q6HR PRN; Protocol PRN Reason: NAUSEA OR VOMITING Morphine Sulfate (Morphine Inj) 2 mg IV.PUSH Q4H PRN PRN Reason: PAIN 6-10 Morphine Sulfate (Msir) 15 mg PO Q4H PRN PRN Reason: PAIN 3-5 Non-Formulary Medication (Morphine [Morphine]) 20 mg PO BID MAX Senna/Docusate Sodium (Mary-Colace) 1 tab PO BID MAX Sennosides (Senokot) 17.2 mg PO Q12H PRN PRN Reason: Moderate Constipation Sodium Chloride (Ns Flush) 2 ml IV.FLUSH PRN PRN PRN Reason: FLUSH AFTER USING IV ACCESS Allergies Allergy/AdvReac Type Severity Reaction Status Date / Time diatrizoate meglumine Allergy Severe Unverified 05/06/17 01:24 gadobenic acid Allergy Severe Unverified 05/06/17 01:24 gadodiamide Allergy Severe Unverified 05/06/17 01:24 gadoteridol Allergy Severe Unverified 05/06/17 01:24 iodine Allergy Severe Unverified 05/06/17 01:24 iodixanol Allergy Severe Unverified 05/06/17 01:24 iohexol Allergy Severe Unverified 05/06/17 01:24 potassium iodide Allergy Severe Unverified 05/06/17 01:24 povidone-iodine Allergy Severe Unverified 05/06/17 01:24 pseudoephedrine Allergy Severe Unverified 05/06/17 01:24 sodium iodide Allergy Severe Unverified 05/06/17 01:24 sodium iodide Allergy Severe Unverified 05/06/17 01:24 Home Medications Medication Instructions Recorded Confirmed Type albuterol sulfate 2.5 mg INHALATION Q4H PRN 10/03/17 10/03/17 History lorazepam 2 mg PO DAILY 10/03/17 10/03/17 History morphine 15 mg PO Q4-6H PRN 10/03/17 10/03/17 History morphine 20 mg PO Q12H 10/03/17 10/03/17 History sulfamethoxazole-trimethoprim 1 tab PO BID 10/03/17 10/03/17 History Exam Vital signs: Vital Signs 10/03/17 20:45 10/03/17 21:02 10/03/17 21:41 Temperature 97.6 F Pulse Rate 118 H 120 H Respiratory Rate 24 30 H Blood Pressure 182/85 H 196/79 H Pulse Oximetry 92 L 95 94 L 10/03/17 22:09 10/04/17 00:29 Temperature Pulse Rate 107 H 105 H Respiratory Rate 20 18 Blood Pressure 177/73 H 144/96 H Pulse Oximetry 95 96 Intake & Output 10/03/17 10/03/17 10/04/17 06:59 18:59 06:59 Weight 110 kg Narrative: PE: GENERAL: Very pleasant middle-aged white female in no acute distress. HEENT: PERRLA, EOMI. No scleral icterus or conjunctival pallor. No lid lag or facial droop. CARDIOVASCULAR: Regular rate and rhythm. No obvious murmurs to auscultation. No chest tenderness to palpation. RESPIRATORY: No obvious rhonchi. +wheezing. Decreased air movement bilaterally. GASTROINTESTINAL: Abdomen soft, non-tender, nondistended. BS normal. MUSCULOSKELETAL: Extremities without clubbing, cyanosis, or edema. No obvious deformities. NEUROLOGICAL: Awake, alert and oriented x4. No focal neurologic deficits. Moving both upper and lower extremities spontaneously. Results - Labs CBC & Chem 7: 10/03/17 21:45 10/03/17 21:45 Labs: Short CBC 10/03/17 Range/Units 21:45 WBC 11.2 H (4.0-11.0) th/mm3 Hgb 15.2 (11.6-15.3) gm/dL Hct 45.7 (35.0-46.0) % Plt Count 336 (150-450) th/mm3 BMP 10/03/17 21:45 Sodium 130 L Potassium 4.4 Chloride 94 L Carbon Dioxide 22.9 BUN 24 H Creatinine 1.25 H Calcium 12.7 H* Liver Function 10/03/17 Range/Units 21:45 Total Bilirubin 0.8 (0.2-1.0) mg/dL AST 55 H (15-37) U/L ALT 23 (10-53) U/L Alkaline Phosphatase 98 (45-117) U/L Albumin 3.4 (3.4-5.0) g/dL - Imaging Impressions Chest X-Ray 10/03/17 21:32 CONCLUSION: Masslike density in the AP window region concerning for a central mass. Suggestion of multiple pulmonary nodules. CT examination the chest would be recommended for further evaluation. Ideally this would be performed with contrast given the potential central mass. Chest CT 10/04/17 00:12 CONCLUSION: Widespread neoplastic disease involving lungs, mediastinum, right breast, chest and abdominal wall, liver and upper abdomen as described. Caprini VTE Risk Assessment Caprini VTE Risk Assessment: Moderate/High Risk (score >= 2) Caprini Risk Assessment Model: Point Value = 1 Point Value = 2 Point Value = 3 Point Value = 5 Age 41-60 Minor surgery BMI > 25 kg/m2 Swollen legs Varicose veins or History of unexplained or recurrent spontaneous Oral contraceptives or hormone replacement Sepsis (< 1 month) Serious lung disease, including pneumonia (< 1 month) Abnormal pulmonary function Acute myocardial infarction Congestive heart failure (< 1 month) History of inflammatory bowel disease Medical patient at bed rest Age 61-74 Arthroscopic surgery Major open surgery (> 45 min) Laparoscopic surgery (> 45 min) Malignancy Confined to bed (> 72 hours) Immobilizing plaster cast Central venous access Age >= 75 History of VTE Family history of VTE Factor V Leiden Prothrombin [id number] Lupus anticoagulant Anticardiolipin antibodies Elevated serum homocysteine Heparin-induced thrombocytopenia Other congenital or acquired thrombophilia Stroke (< 1 month) Elective arthroplasty Hip, pelvis, or leg fracture Acute spinal cord injury (< 1 month) Prophylaxis Regimen: Total Risk Factor Score Risk Level Prophylaxis Regimen 0-1 Low Early ambulation 2 Moderate Order ONE of the following: *Sequential Compression Device (SCD) *Heparin 5000 units SQ BID 3-4 Higher Order ONE of the following medications: *Heparin 5000 units SQ TID *Enoxaparin/Lovenox 40 mg SQ daily (WT < 150 kg, CrCl > 30 mL/min) *Enoxaparin/Lovenox 30 mg SQ daily (WT < 150 kg, CrCl > 10-29 mL/min) *Enoxaparin/Lovenox 30 mg SQ BID (WT < 150 kg, CrCl > 30 mL/min) AND/OR *Sequential Compression Device (SCD) 5 or more Highest Order ONE of the following medications: *Heparin 5000 units SQ TID (Preferred with Epidurals) *Enoxaparin/Lovenox 40 mg SQ daily (WT < 150 kg, CrCl > 30 mL/min) *Enoxaparin/Lovenox 30 mg SQ daily (WT < 150 kg, CrCl > 10-29 mL/min) *Enoxaparin/Lovenox 30 mg SQ BID (WT < 150 kg, CrCl > 30 mL/min) AND *Sequential Compression Device (SCD) Assessment and Plan - Assessment (1) COPD (chronic obstructive pulmonary disease) Code(s): J44.9 - Chronic obstructive pulmonary disease, unspecified Status: Chronic (2) Hypoxia Code(s): R09.02 - Hypoxemia Status: Acute (3) Metastatic disease Code(s): C79.9 - Secondary malignant neoplasm of unspecified site Status: Acute (4) Hypercalcemia Code(s): E83.52 - Hypercalcemia Status: Acute (5) Renal insufficiency Code(s): N28.9 - Disorder of kidney and ureter, unspecified Status: Acute - Plan A/P: 1. COPD: Chronic Respiratory Failure w/ Acute Exacerbation. Moderate. + wheezing on exam. Solu-Medrol 125mg IV x1 now and 40mg IV q6h, DuoNeb prn, Symbicort bid. 2. Hypoxia: O2 sat 80% on RA per report, not on O2 at home, likely multifactorial, COPD/Lung Mets/possible PNA. CTA not done due to severe contrast allergy. Check V/Q, start on empiric Lovenox in light of symptoms and underlying malignancy. 3. Metastatic Disease: recently found to have breast mass w/ metastatic disease to liver/lung, work up in progress at , not currently on chemotherapy. Follow up w/ Oncology as planned. 4. Hypercalcemia: Ca 12.7, s/p IVF in ER, will continue w/ aggressive IVF for hydration, repeat Ca, telemetry. 5. Renal Insufficiency: Creatinine 1.25, previously 1.13 on 05/06/17, IVF for hydration, repeat labs in am. 6. DVT Prophylaxis: SCD/Teds 7. Social work for d/c planning as needed. 8. Case discussed w/ ER physician at length, labs/records/imaging reviewed by me.
[2017-10-04] MEDS: Sod Chloride 0.9% Inj 1,000 ML IV.CONT SCH (04:08)
[2017-10-04 07:46] LABS: Baso % (Auto) 0.4 % (0.0-2.0); Eos % (Auto) 0.3 % (0.0-4.0); Hematocrit 43.3 % (35.0-46.0); Hemoglobin 14.7 gm/dL (11.6-15.3); Lymph # (Auto) 0.8 th/mm3 (1.0-4.8); Lymph % (Auto) 9.8 % (9.0-44.0); Mean Corpuscular Hemoglobin 30.5 pg (27.0-34.0); Mean Corpuscular Volume 89.7 fL (80.0-100.0); Mean Platelet Volume 7.6 fL (7.0-11.0); Mono # (Auto) 0.2 th/mm3 (0.0-0.9); Mono % (Auto) 2.9 % (0.0-8.0); Neut # (Auto) 7.1 th/mm3 (1.8-7.7); Neut % (Auto) 86.6 % (16.0-70.0); Platelet Count 283 th/mm3 (150-450); Red Blood Count 4.83 mil/mm3 (4.00-5.30); Red Cell Distribution Width 13.8 % (11.6-17.2); White Blood Count 8.2 th/mm3 (4.0-11.0)
[2017-10-04] MEDS: Morphine Sulfate 15 MG SR Tablet PO SCH ×2 (08:17→22:19)
[2017-10-04] MEDS: MethylPREDNISolone Sod Succinate Inj 40 MG/ML Vial IV.PUSH SCH ×3 (08:17→22:18)
[2017-10-04] MEDS: Senna/Docusate Sodium 8.6/50 MG Tablet PO SCH ×2 (08:18→22:19)
[2017-10-04 08:31] LABS: Albumin 3.1 g/dL (3.4-5.0); Carbon Dioxide 21.5 meq/L (21.0-32.0); Potassium 4.9 meq/L (3.5-5.1); Total Protein 7.6 g/dL (6.4-8.2)
--- NOTE | 2017-10-04 09:50 | P.PN ---
Subjective Interval history: Follow up for dyspnea, cough, metastatic cancer, hypercalcemia. The patient is awake, alert, oriented to person, initially states she is at , then states [place], initially states the year is "19" then after multiple prompting says 2018, oriented to President. She reports continued shortness of breath and cough productive of green sputum. Denies fevers or chills. Denies any chest pain. Denies any spasms, abdominal pain, nausea/vomiting. Physical Exam Vital signs: Vital Signs 10/03/17 20:45 10/03/17 21:02 10/03/17 21:41 Temperature 97.6 F Pulse Rate 118 H 120 H Respiratory Rate 24 30 H Blood Pressure 182/85 H 196/79 H Pulse Oximetry 92 L 95 94 L 10/03/17 22:09 10/04/17 00:29 10/04/17 01:34 Temperature Pulse Rate 107 H 105 H Respiratory Rate 20 18 Blood Pressure 177/73 H 144/96 H Pulse Oximetry 95 96 97 10/04/17 02:49 10/04/17 07:50 10/04/17 08:00 Temperature 97.5 F L Pulse Rate 106 H Respiratory Rate 18 20 Blood Pressure 182/77 H Pulse Oximetry 97 95 94 L Intake & Output 10/03/17 10/04/17 10/04/17 18:59 06:59 18:59 Intake Total 690 / 690 Balance 690 / 690 Weight 110 kg Intake: IV 150 / 150 Levaquin 750 mg Premix Inj 150 150 / 150 ML @ 100 mls/hr IV.SIG Q48H JOANNE Rx#:[id number] Oral 240 / 240 Other 300 / 300 Other: # Voids 1 Weight On Admission 110 kg Narrative: GENERAL: Well-nourished, well-developed female patient in [facility]. SKIN: Warm and dry. No rash. HEENT: Normocephalic. Atraumatic. Pupils equal and round. Mucous membranes pink and moist. NECK: Supple. Trachea midline. CARDIOVASCULAR: Regular rate and rhythm. No murmur appreciated. RESPIRATORY: No accessory muscle use. Diffuse mild expiratory wheezing, with decreased breath sounds at bilateral bases. GASTROINTESTINAL: Abdomen soft, non-tender, nondistended. Normoactive bowel sounds x4. MUSCULOSKELETAL: No obvious deformities. Extremities without clubbing, cyanosis , or edema. NEUROLOGICAL: Awake and alert. No obvious cranial nerve deficits. Motor grossly within normal limits. Moving all extremities spontaneously. Normal speech. Results - Labs CBC & Chem 7: 10/04/17 07:15 10/04/17 07:13 Laboratory Results - last 24 hr 10/03/17 10/03/17 10/03/17 21:45 21:45 21:45 WBC 11.2 H RBC 5.13 Hgb 15.2 Hct 45.7 MCV 89.1 MCH 29.7 MCHC 33.3 RDW 13.9 Plt Count 336 MPV 8.0 Neut % (Auto) 68.4 Lymph % (Auto) 16.7 Ector % (Auto) 13.2 H Eos % (Auto) 0.9 Baso % (Auto) 0.8 Neut # (Auto) 7.7 Lymph # (Auto) 1.9 Ector # (Auto) 1.5 H Eos # (Auto) 0.1 Baso # (Auto) 0.1 WBC Differential . Differential Comment Auto diff final D-Dimer Quant (PE/DVT) 1.86 H Sodium 130 L Potassium 4.4 Chloride 94 L Carbon Dioxide 22.9 Anion Gap 13 BUN 24 H Creatinine 1.25 H Estimated GFR 43 L Random Glucose 118 H Calcium 12.7 H* Prot Corrected Calcium 12.1 H* Total Bilirubin 0.8 AST 55 H ALT 23 Alkaline Phosphatase 98 Total Protein 8.0 Albumin 3.4 10/04/17 10/04/17 07:13 07:15 WBC 8.2 RBC 4.83 Hgb 14.7 Hct 43.3 MCV 89.7 MCH 30.5 MCHC 34.0 RDW 13.8 Plt Count 283 MPV 7.6 Neut % (Auto) 86.6 H Lymph % (Auto) 9.8 Ector % (Auto) 2.9 Eos % (Auto) 0.3 Baso % (Auto) 0.4 Neut # (Auto) 7.1 Lymph # (Auto) 0.8 L Ector # (Auto) 0.2 Eos # (Auto) 0.0 Baso # (Auto) 0.0 WBC Differential . Differential Comment Auto diff final D-Dimer Quant (PE/DVT) Sodium 133 L Potassium 4.9 Chloride 99 Carbon Dioxide 21.5 Anion Gap 13 BUN 25 H Creatinine 1.11 H Estimated GFR 49 L Random Glucose 116 H Calcium 12.0 H* Prot Corrected Calcium 11.7 H* Total Bilirubin 0.7 AST 53 H ALT 23 Alkaline Phosphatase 94 Total Protein 7.6 Albumin 3.1 L - Imaging Impressions Chest X-Ray 10/03/17 21:32 CONCLUSION: Masslike density in the AP window region concerning for a central mass. Suggestion of multiple pulmonary nodules. CT examination the chest would be recommended for further evaluation. Ideally this would be performed with contrast given the potential central mass. Chest CT 10/04/17 00:12 CONCLUSION: Widespread neoplastic disease involving lungs, mediastinum, right breast, chest and abdominal wall, liver and upper abdomen as described. Assessment and Plan - Assessment (1) COPD (chronic obstructive pulmonary disease) Code(s): J44.9 - Chronic obstructive pulmonary disease, unspecified Status: Chronic (2) Hypoxia Code(s): R09.02 - Hypoxemia Status: Acute (3) Metastatic disease Code(s): C79.9 - Secondary malignant neoplasm of unspecified site Status: Acute (4) Hypercalcemia Code(s): E83.52 - Hypercalcemia Status: Acute (5) Renal insufficiency Code(s): N28.9 - Disorder of kidney and ureter, unspecified Status: Acute - Plan 67-year-old female with a PMH of COPD and recent diagnosis of Breast Mass with metastatic Disease who presents to ER with complaints of SOB and productive cough x1 wk. Acute Hypoxic Respiratory Failure: O2 sat 80% on RA per report, not on O2 at home, likely multifactorial, COPD/Lung Mets/possible PNA. -CXR reviewed, shows masslike density in the AP window region concerning for a central mass. Suggestion of multiple pulmonary nodules. -Chest CT showed widespread neoplastic disease involving lungs, mediastinum, right breast, chest and abdominal wall, liver and upper abdomen as described. -CTA not done due to severe contrast allergy -V/Q scan with low probability for PE -Continue O2, steroids, bronchodilators Acute COPD Exacerbation: Chronic Respiratory Failure w/ Acute Exacerbation. Moderate. +wheezing on exam. -Continue steroids with IV Solu-Medrol 40mg q6h -Continue Duonebs q6h joanne and q4h prn -Symbicort bid. -Mucinex bid -Give antibiotics with IV levaquin in light of productive cough with green sputum -Incentive spirometer, acapella Metastatic Disease: recently found to have breast mass w/ metastatic disease to liver/lung, work up in progress at , not currently on chemotherapy. -Consult oncology -continue patient's home pain meds including Oramorph and morphine IR Hypercalcemia: Ca 12.7, s/p IVF in ER -continue w/ aggressive IVF for hydration -monitor on telemetry. -repeat Ca shows improvement Ca 12.0, continue on aggressive IVF, increased rate to 150cc/hr Acute Renal Insufficiency: Creatinine 1.25, previously 1.13 on 05/06/17 -Give IVF for hydration -repeat labs show mild improvement with Cr 1.11 -continue to monitor DVT Prophylaxis: Lovenox Discharge Planning: Discharge pending further clinical improvement and oncology consult. Not yet ready for discharge.
--- NOTE | 2017-10-04 12:50 | NM ---
EXAM DATE: 10/04/2017 12:22 PM EDT AGE/SEX: 67 years / Female INDICATIONS: Short of breath. CLINICAL DATA: This is the patient's initial encounter. Patient reports that signs and symptoms have been present for 1 day and indicates a pain score of 2/10. MEDICAL/SURGICAL HISTORY: Chronic obstructive pulmonary disease. Hysterectomy. COMPARISON: No prior exams available for comparison. DOSE: 1.3 mCi Tc99m DTPA aerosol 8.1 mCi Tc99m MAA IV TECHNIQUE: Following five minutes of tidal breathing of DTPA aerosol, planar images of the lungs wer e performed in eight projections. The patient was then injected with MAA, and eight-view perfusion s can was performed. FINDINGS: There is globally decreased ventilation to the left lung with associated radiographic abnormality. The perfusion lung scan demonstrates a homogenous pattern of uptake in both lungs. No segmental or s ubsegmental defects are seen. CONCLUSION: 1. Low probability of pulmonary embolism Electronically signed by: Rafal Willson MD 10/04/2017 12:48 PM EDT
[2017-10-04] MEDS ORDERED: Enoxaparin Inj 120 MG/0.8 ML Syringe SQ SCH (14:00)
[2017-10-04] MEDS ORDERED: Morphine Inj 4 MG/ML Vial IV.PUSH STA (15:21)
[2017-10-04] MEDS: guaiFENesin 600 MG ER Tablet PO SCH ×2 (15:35→22:19)
[2017-10-04] MEDS ORDERED: Anastrozole 1 MG Tablet PO SCH (15:45)
--- NOTE | 2017-10-04 17:46 | MB ---
cc: Cele Massey MD,Alexandre Fernandez MD DATE: 10/04/2017 REFERRING PHYSICIAN: Alexandre Pruitt CHIEF COMPLAINT: Dr. Pruitt requested consultation from Mrs. Young regarding suspected metastatic breast cancer. HISTORY OF PRESENT ILLNESS: Ms. Young is a 67-year-old woman with history of osteoarthritis, spinal stenosis, COPD, history of tobacco use. She reports developing a right breast mass just 2 weeks ago. She was in the process of having this evaluated and seeing Dr. Spencer Burton in followup. Biopsy of the right breast was performed at [facility]. She was pending the results. She came into the emergency room with respiratory symptoms, shortness of breath and vomiting. She was found to have hypercalcemia. She has diffuse tenderness in all her bones. She is quite uncomfortable. Due to her renal insufficiency, pulmonary perfusion was performed that showed low probability for pulmonary embolism. She had a CT scan of the chest that shows widespread neoplastic disease involving the lung, mediastinum, the right breast. There is also a lesion in the chest, abdominal wall, liver, upper abdomen. Review of systems essentially negative about a month ago. She has cataracts, which she has deferred from surgery. She was doing well until the above finding of a breast mass and then the short time development of the hypercalcemia. We reviewed the imaging study, the laboratory evaluation. She has evidence of acute renal insufficiency. It appears to have improved between late last night and early this morning with hydration alone. The hypercalcemia has improved. She is nauseous. She denies any fever. She denies any vision change. She has a history of spinal stenosis. PAST MEDICAL HISTORY: Chronic tobacco use, COPD, hypercalcemia, acute renal insufficiency, osteoarthritis. PAST SURGICAL HISTORY: Hysterectomy, colonoscopy. SOCIAL HISTORY: She is a current smoker. She denies any alcohol or illicit drug use. She has a brother who is younger, who is accompanying her at the time of the consultation. ALLERGIES: TO MULTIPLE MEDICATIONS INCLUDING DIATRIZOATE MEGLUMINE, GADOBENIC ACID, GADODIAMIDE, GADOTERIDOL, IODINE. CURRENT MEDICATIONS: Include acetaminophen, DuoNebs, Dulcolax, Lovenox, Mucinex, lactulose, Solu-Medrol, Reglan, morphine, Oramorph, Mary-Colace, Senokot. PHYSICAL EXAMINATION: VITAL SIGNS: Temperature 97.9, heart rate 99, respiratory rate 23, blood pressure 181/78, saturation 94%. GENERAL: Ms. Young is a well-developed, obese woman in significant distress with bone pain all throughout. She says it localizes in her back, right arm and right leg. HEENT: Her pupils are small, but reactive. Oropharynx is dry. NECK: Supple. LUNGS: Clear to auscultation. CARDIOVASCULAR: Reveals tachycardia. ABDOMEN: Large and benign. MUSCULOSKELETAL: Lower extremities with no edema. There are chronic venous changes. Good pulses. She moves all 4 extremities. NEUROLOGIC: She is a little sedated from the morphine, but arousable and cooperative. BREASTS: No supraclavicular or axillary adenopathy. Left breast is negative. Right breast with a palpable 2 cm mass at the 12 o'clock position. ASSESSMENT AND PLAN: Ms. Young is a 67-year-old woman with history of chronic obstructive pulmonary disease, osteoarthritis and spinal stenosis. Her last mammogram was more than 20 years ago. She reports development of a right breast mass over the last 2 weeks. It has enlarged. Her symptoms of pain have worsened over her whole body in the last 2 weeks as well. She has had a right breast biopsy and is pending final pathology evaluation. Breast primary with metastatic disease to lung, liver, bone and body wall is considered. We discussed the possibility of ER positive breast cancer. She would be then a candidate for hormonal therapy with an aromatase inhibitor. We discussed empirically starting her on aromatase inhibitor pending the biopsy results and estrogen receptor positivity. We discussed the toxicity associated with the aromatase inhibitor. She is uncomfortable and desirous of starting something for treatment. We discussed obtaining a bone scan to evaluate the extent of disease. She has hypercalcemia, which suggests likely bony involvement. I will give her another 12 hours of hydration. As her renal function improves, a dose of Zometa will be administered. A definitive treatment from a breast cancer standpoint will depend on the pathology report. They understand that breast cancer may be estrogen receptor negative in 20% of the cases. She is willing to try the aromatase inhibitor pending that. We considered that the downside is quite low and the potential benefit significant. We are limited in using pain medication. Her renal function obviates the use of anti-inflammatory such as NSAIDs, also giving her anti-inflammatory medication in the form of steroids. Long-acting pain medicine is started. For breakthrough medication, 2 mg of morphine will be given every 3 hours. We will monitor to see her response to this. A dose of 2 mg morphine is given once now to see if it alleviates her pain and makes her more comfortable. She is also quite anxious. We discussed the use of lorazepam. We discussed the beneficial effects of lorazepam for nausea. She would like to continue her care with Dr. Burton. Her original appointment was with Dr. Burton. They have experience with Dr. Burton taking care of another family member. Ms. Young's questions were answered to her satisfaction. MD YENNI Johnson/DELTA , 03:54 PM , 05:44 PM
[2017-10-04 17:48] LABS: Calcium 10.9 mg/dL (8.5-10.1); Carbon Dioxide 22.5 meq/L (21.0-32.0); Potassium 4.7 meq/L (3.5-5.1)
[2017-10-04 21:15] LABS: ABG PCO2 41 mmHg (38-42); ABG PO2 67 mmHg (61-120)
[2017-10-04] MEDS: Morphine Inj 4 MG/ML Vial IV.PUSH PRN (23:54)
[2017-10-05] MEDS: MethylPREDNISolone Sod Succinate Inj 40 MG/ML Vial IV.PUSH SCH ×4 (02:57→20:27)
[2017-10-05] MEDS: Sod Chloride 0.9% Inj 1,000 ML IV.CONT SCH ×2 (05:56→06:29)
[2017-10-05] MEDS: Enoxaparin Inj 40 MG/0.4 ML Syringe SQ SCH (08:34)
[2017-10-05] MEDS: Senna/Docusate Sodium 8.6/50 MG Tablet PO SCH ×2 (08:35→22:14)
[2017-10-05] MEDS: guaiFENesin 600 MG ER Tablet PO SCH ×2 (08:35→22:14)
[2017-10-05] MEDS: Morphine Sulfate 15 MG SR Tablet PO SCH ×2 (08:35→22:13)
[2017-10-05] MEDS: Morphine Inj 4 MG/ML Vial IV.PUSH PRN ×3 (08:36→20:33)
--- NOTE | 2017-10-05 10:10 | P.DCO ---
- Certification I have seen patient Sylvie Young on 10/05/17. My clinical findings support the need for the requested home health care services because: I certify that my clinical findings support that this patient is homebound because:
--- NOTE | 2017-10-05 12:11 | ECG ---
Date Performed: 10/03/2017 Time Performed: 21:58:46 PTAGE: 67 years EKG: SINUS TACHYCARDIA POSSIBLE LEFT ATRIAL ENLARGEMENT ABNORMAL RHYTHM ECG PREVIOUS TRACING : 05/06/2017 02.33 DOCTOR: Iwona Kim Interpretating Date/Time 10/05/2017 12:05:10
[2017-10-05] MEDS ORDERED: Pamidronate Inj 60 MG in Sodium Chlor 0.9% Inj 500 ML IV.SIG ONE ×2 (13:09→16:00)
--- NOTE | 2017-10-05 13:24 | P.PNFP ---
Subjective Interval history: Pt seen and examined for metastatic breast cancer. She is lethargic and only answers a few yes or no questions. Per RN, she has been confused and has been wheezing. Pt denies pain. Endorses some difficulty breathing. She has audible wheezing. Results - Labs Result diagrams: 10/04/17 07:15 10/04/17 16:35 Abnormal lab results 10/04/17 Range/Units 16:35 Sodium 134 L (136-145) meq/L BUN 24 H (7-18) mg/dL Estimated GFR 58 L (>89) mL/min Random Glucose 122 H (74-106) mg/dL Calcium 10.9 H D (8.5-10.1) mg/dL BMP 10/04/17 16:35 Sodium 134 L Potassium 4.7 Chloride 101 Carbon Dioxide 22.5 BUN 24 H Creatinine 0.96 Calcium 10.9 H D Physical Exam Vital signs: Vital Signs 10/04/17 15:07 10/04/17 16:00 10/04/17 20:00 Temperature 98.2 F 97.6 F Pulse Rate 99 H 97 H 110 H Respiratory Rate 23 18 18 Blood Pressure 220/129 H 181/97 H Pulse Oximetry 96 97 10/04/17 20:07 10/04/17 23:56 10/05/17 00:00 Temperature Pulse Rate 120 H Respiratory Rate 24 18 Blood Pressure Pulse Oximetry 95 97 10/05/17 06:01 10/05/17 06:24 10/05/17 08:00 Temperature 97.3 F L Pulse Rate 106 H 94 H 80 Respiratory Rate 18 Blood Pressure 188/93 H Pulse Oximetry 94 L 10/05/17 08:26 10/05/17 11:02 10/05/17 12:00 Temperature 97.0 F L 97.8 F Pulse Rate 96 H 97 H 98 H Respiratory Rate 18 20 Blood Pressure 180/95 H 170/71 H Pulse Oximetry 93 L 97 10/05/17 12:56 Temperature Pulse Rate 92 H Respiratory Rate 18 Blood Pressure Pulse Oximetry Intake & Output 10/04/17 10/05/17 10/05/17 18:59 06:59 18:59 Intake Total 990 / 990 240 / 240 Output Total 300 / 300 Balance 990 / 990 -60 / -60 Intake: IV 990 / 990 NS Inj 1,000 ML @ 150 mls/hr IV 990 / 990 .CONT .Q6H40M [facility] Rx#:[id number] Oral 240 / 240 Output: Urine 300 / 300 Other: # Voids 1 Narrative: GENERAL: female sleeping in bed NAD. Somnolent and difficult to arouse. SKIN: Warm and dry. HEENT: AT/NC. Pupils equal and round. MMM. NECK: Supple no tender LAD or JVD. HEART: Tachycardic no m/r/g. LUNGS: Course breath sounds with diffuse wheezing. ABDOMEN: +BS, soft, NT, ND. EXTREMITIES: No LE edema. 2+ pedal pulses. Assessment and Plan - Assessment (1) COPD (chronic obstructive pulmonary disease) Code(s): J44.9 - Chronic obstructive pulmonary disease, unspecified Status: Chronic (2) Hypoxia Code(s): R09.02 - Hypoxemia Status: Acute (3) Metastatic disease Code(s): C79.9 - Secondary malignant neoplasm of unspecified site Status: Acute (4) Hypercalcemia Code(s): E83.52 - Hypercalcemia Status: Acute (5) Renal insufficiency Code(s): N28.9 - Disorder of kidney and ureter, unspecified Status: Acute - Assessment and Plan 67 YOWF with OA, COPD, spinal stenosis, and history of tobacco abuse admitted on 10/03 with shortness of breath, vomiting, and diffuse tenderness throughout her body. She had recently been diagnosed with a right breast cancer and is awaiting biopsy results from [facility]. 1. Metastatic breast cancer - In the process of working up her SOB, CT chest revealed widespread neoplastic disease involving the lung, mediastinum, right breast, chest and abdominal wall , liver, and upper abdomen - Check CT A/P to further evaluate extent of metastases - Oncology consulted, recommended started an aromatase inhibitor while waiting for pathology results - Started Anastrazole - Consult palliative care to clarify goals and wishes - Pain control 2. Dyspnea - Elevated D-dimer but patient w/ severe contrast allergy so VQ scan was done which showed low probability of PE - CT chest showing widespread metastatic disease as above - Supplemental O2 3. Hypercalcemia - Calcium 12.7 on admission, down to 10.9 yesterday afternoon after IV hydration - Continue to monitor, today's labs pending - Likely secondary to malignancy as well as possible bony involvement - IV fluid hydration 4. BERNICE, resolved - Creatinine 1.25 on admission, down to 0.96 this morning - BUN elevated at 24 - Continue IV hydration 5. COPD exacerbation - Pt with increased sputum, cough, and SOB - Continue Levaquin and Solumedrol - DuoNeb - Supplemental O2 6. Anxiety - Change IV Ativan to PO as patient lethargic and somnolent on eval - Ativan 1 mg PO Q4 PRN 7. HTN - BPs significantly elevated - Start metoprolol 25 mg PO BID since also tachycardic - Titrate as needed - Continue to monitor DVT prophylaxis: Lovenox
[2017-10-05] MEDS ORDERED: LORazepam 1 MG Tablet PO PRN (14:20)
[2017-10-05 14:28] LABS: Calcium 10.9 mg/dL (8.5-10.1); Carbon Dioxide 22.2 meq/L (21.0-32.0); Potassium 4.1 meq/L (3.5-5.1)
--- NOTE | 2017-10-05 15:33 | P.PNONC ---
Subjective Interval history: Patient lethargic, status post a dose of IV Ativan earlier this afternoon. Patient will answer yes or no questions intermittently. Nursing staff is at the bedside changing her linens. Objective Vital Signs/Intake & Output: Vital Signs 10/04/17 16:00 10/04/17 20:00 10/04/17 20:07 Temperature 98.2 F 97.6 F Pulse Rate 97 H 110 H 120 H Respiratory Rate 18 18 24 Blood Pressure 220/129 H 181/97 H Pulse Oximetry 96 97 95 10/04/17 23:56 10/05/17 00:00 10/05/17 06:01 Temperature Pulse Rate 106 H Respiratory Rate 18 Blood Pressure Pulse Oximetry 97 10/05/17 06:24 10/05/17 08:00 10/05/17 08:26 Temperature 97.3 F L 97.0 F L Pulse Rate 94 H 80 96 H Respiratory Rate 18 18 Blood Pressure 188/93 H 180/95 H Pulse Oximetry 94 L 93 L 10/05/17 11:02 10/05/17 12:00 10/05/17 12:56 Temperature 97.8 F Pulse Rate 97 H 98 H 92 H Respiratory Rate 20 18 Blood Pressure 170/71 H Pulse Oximetry 97 Intake & Output 10/04/17 10/05/17 10/05/17 18:59 06:59 18:59 Intake Total 990 / 990 240 / 240 Output Total 300 / 300 Balance 990 / 990 -60 / -60 Intake: IV 990 / 990 NS Inj 1,000 ML @ 150 mls/hr IV 990 / 990 .CONT .Q6H40M [facility] Rx#:[id number] Oral 240 / 240 Output: Urine 300 / 300 Other: # Voids 1 Result Diagrams: 10/04/17 07:15 10/05/17 13:00 Laboratory Results: Laboratory Results - last 24 hr 10/04/17 10/04/17 10/05/17 16:35 21:01 13:00 Puncture Site Left radial Patient Temperature 98.6 O2 Saturation 90 ABG pH 7.38 ABG pCO2 41 ABG pO2 67 ABG HCO3 23 ABG O2 Content 17.7 ABG Base Excess -1.0 ABG Methemoglobin 0.9 Juve Test Present Hemoglobin 14.0 Carboxyhemoglobin 0.8 O2 Delivery Device Nasal cannula Liter Flow 4.00 Inspired O2 21 Critical Value No Sodium 134 L 138 Potassium 4.7 4.1 Chloride 101 103 Carbon Dioxide 22.5 22.2 Anion Gap 11 13 BUN 24 H 25 H Creatinine 0.96 0.84 Estimated GFR 58 L 68 L Random Glucose 122 H 115 H Calcium 10.9 H D 10.9 H Medications: Active Medications Generic Name Dose Route Start Last Admin Trade Name Freq PRN Reason Stop Dose Admin Acetaminophen 650 mg 10/04/17 01:34 10/05/17 06:16 Tylenol PO 650 mg Q4H PRN Administration Temp > 100.4 Albuterol 1 ampul 10/04/17 20:00 10/05/17 12:54 Duoneb Neb (Kendy) NEB 1 ampul Q6HR WHILE AWAKE NEB KENDY Administration Clonidine HCl 0.1 mg 10/04/17 19:33 10/05/17 06:16 Catapres PO 0.1 mg Q6H PRN Administration SBP>160 and/or DBP>100; HR>60 Enoxaparin Sodium 40 mg 10/05/17 09:00 10/05/17 08:34 Lovenox Inj SQ 40 mg DAILY KENDY Administration Guaifenesin 600 mg 10/04/17 14:45 10/05/17 08:35 Mucinex Er PO 600 mg BID KENDY Administration Sodium Chloride 1,000 mls @ 150 mls/hr 10/04/17 01:45 10/05/17 06:29 Ns Inj IV.CONT Not Given .Q6H40M KENDY Levofloxacin/Dextrose 150 mls @ 100 mls/hr 10/04/17 02:00 10/04/17 06:31 Levaquin 750 Mg Premix Inj IV.SIG Infused Q48H KENDY Infusion Methylprednisolone Sodium Succinate 40 mg 10/04/17 08:00 10/05/17 08:34 Solumedrol Inj IV.PUSH 40 mg Q6H KENDY Administration Metoclopramide HCl 5 mg 10/04/17 01:34 10/05/17 08:41 Reglan Inj IV.PUSH 5 mg Q6HR PRN Administration NAUSEA OR VOMITING Protocol Morphine Sulfate 15 mg 10/04/17 09:00 10/05/17 08:35 Oramorph Sr PO 15 mg BID KENDY Administration Morphine Sulfate 2 mg 10/04/17 15:37 10/05/17 08:36 Morphine Inj IV.PUSH 2 mg Q3H PRN Administration BREAKTHROUGH PAIN Senna/Docusate Sodium 1 tab 10/04/17 09:00 10/05/17 08:35 Mary-Colace PO 1 tab BID KENDY Administration Objective Remarks: GENERAL: Well-nourished, well-developed female patient, who appears stated age. Lethargic. SKIN: Warm and dry. Bruising to right chest wall 4 cm, 2 cm LUQ abdomen. multiple brown spots to bilateral lower extremities. HEAD: Normocephalic. EYES: No scleral icterus. No injection or drainage. NECK: Supple, trachea midline. CARDIOVASCULAR: Distant heart sounds. RESPIRATORY: Anterior expiratory wheezes bilateral upper lobes. Breath sounds equal bilaterally. No accessory muscle use. O2 via NC 4L. GASTROINTESTINAL: Abdomen soft, tender, nondistended. EXTREMITIES: No cyanosis, or edema. MUSCULOSKELETAL: Decreased muscle tone. NEUROLOGICAL: Lethargic. Wakes to loud verbal stimuli. Moving extremities. PSYCHIATRIC: Unable to evaluate at this time. Assessment/Plan - Plan Ms. Young is a 67-year-old female patient who presented to the hospital with shortness of breath and vomiting. She had reported developing a right breast mass 2 weeks ago was in the process of having this evaluated and seeing Dr. Spencer Burton in followup. Biopsy of the right breast was performed at [facility] in [facility]. She was pending the results. She was found to have hypercalcemia and a CT scan of the chest showed widespread neoplastic disease involving the lung, mediastinum, the right breast. There is also a lesion in the chest, abdominal wall, liver, upper abdomen. We have obtained her surgical pathology report from . Collected 09/28/17, right chest wall mass, core biopsy: Poorly differentiated adenocarcinoma, primary of the lung. The tumor is associated with extensive necrosis. Classified as primary adenocarcinoma of the lung. Plan: 1. We will discuss the pathology report with the patient once she is alert and oriented, unfortunately today she is to lethargic to warrant this discussion. 2. Continue to monitor. Avoid oversedation. Attending physician has made medication adjustments. 3. Hypercalcemia- likely from bony metastasis. Will give Aredia 60mg today. Continue to monitor calcium levels. 4. Arimidex has been discontinued with pathology findings of primary lung ca. 5. Continue supportive care. - Attending Statement The exam, history, and the medical decision-making described in the above note were completed with the assistance of the mid-level provider. I reviewed and agree with the findings presented. I attest that I had a [id number] encounter with the patient on the same day, and personally performed and documented my assessment and findings in the medical record. PT seen and examined covering for Dr. Burton. PT too lethargic to participate in decision making. Ativan held. Pathology obtained from [place] medical records. R breast biopsy show metastatic NSCLCA, poorly differentiated. Arimidex was never given yesterday. Hypercalcemia of malignancy managed by hydration and diuresis. Bisphosphonate added for better control and adjunctive therapy for lung cancer. Goal of treatment is palliation. Main complaint was pain. Continue to monitor.
[2017-10-05] MEDS ORDERED: Haloperidol Inj 5 MG/ML Ampul IV.PUSH PRN (16:36)
[2017-10-05] MEDS ORDERED: Metoprolol Inj 5 MG/5 ML Vial IV.PUSH PRN (16:38)
--- NOTE | 2017-10-05 20:10 | P.CONPAL ---
Consult Service: Palliative Care Requesting Physician: Jackie Nguyen Reason for Consult: a. To assist with evaluation and management of symptoms including: confusion. b. To assist medical decision maker(s) with: better understanding of current medical conditions; weighing benefits/burdens of medical treatment options; making medical treatment decisions. Primary Care Provider: UNKNOWN History of Present Illness History of Present Illness: Ms. Young is a 67 year old female with past medical history of osteoarthritis, spinal stenosis, tobacco use, COPD and recent onset of right breast mass status post biopsy. Patient presented to [facility] emergency department on 10/03/17 with nausea and vomiting for a few days prior to presentation, sudden onset of shortness of breath. Upon arrival to the emergency department the patient was short of breath, tachycardic. Initial emergency room findings revealed: * Vital signs: Temp 97.6, pulse 118, respiratory rate 24, blood pressure 182/85 , oxygen saturation 92%. * Chest x-ray: Masslike density concerning for central mass, suggestion of multiple pulmonary nodules. * EKG: Sinus tachycardia possible left atrial enlargement. * Pulmonary perfusion scan: Low probability of pulmonary embolism. * CT chest: Widespread neoplastic disease involving lungs, mediastinum, right breast, chest, abdominal wall, liver and upper abdomen. * WBC 11.2, hemoglobin 15.2, hematocrit 45.7, platelet count 336, neutrophil 68.4% * Sodium 130, potassium 4.4, chloride 94, carbon dioxide 22.9, BUN 24, creatinine 1.25, GFR 43, glucose 118, * calcium 12.7, protein corrected calcium 12.2 * Total bilirubin 0.8, AST 55, ALT 23, alkaline phosphatase 98 * Total protein 8.0, albumin 3.4 * D-dimer 1.86 Patient was admitted with likely widespread metastatic disease, hypercalcemia, acute kidney injury. Dr. Massey, medical oncology was consulted for evaluation of abnormal imaging, hypercalcemia. Patient apparently underwent right breast biopsy at [facility], pathology reports obtained and revealed poorly differentiated adenocarcinoma with extensive necrosis, classified as primary adenocarcinoma of the lung. Aredia was ordered for treatment of hypercalcemia. Palliative care is consulted to assist with further clarification of medical treatment goals and symptom management. Upon my arrival today the patient is extremely confused, when I ask her how she is feeling today she responds "very angry." When I asked her why she tells me she is angry because "[employer] has been infringing on her rights." When I ask her if she is having any pain, she reports pain due to her lack of dignity related her concerns about [employer]. She is not oriented to person place or time. She is unable to answer questions appropriately. She denies having any family. And tells me her friend Nelly Cano has her own family when I try to ask her how they know each other. Nurses indicate Nelly is her roommate. Yola Robles LCSW with Palliative care has been unable to reach Nelly, no other family identified. Nursing staff indicates she may have a daughter. I have asked staff to get names and phone numbers and relationship for any visitors. Requested accurate search for family. Palliative care is unable to assist with further clarification of treatment goals until we can determine legal healthcare proxy decision-maker. . Function/Cognitive Trajectory: Unknown. Patient unable to answer questions. Review of Systems unobtainable due to mental status (Except pertinent data in HPI per ER notes) FORMERLY [facility], [facility]–1983 - History History Provided By: Patient - Medical History Medical History: Medical History (Last Updated 09/20/17 @ 09:38 by Peg Joy MD) Osteoarthritis (Chronic) COPD (chronic obstructive pulmonary disease) (Chronic) - Surgical History Surgical History: Surgical History (Last Updated 10/05/17 @ 20:02 by Keely Garcia) History of hysterectomy (Resolved) H/O right breast biopsy - Family History Family History: Family History (Last Updated 10/05/17 @ 20:03 by Keely Garcia) Other Unknown family medical history - Tobacco History Second Hand Smoke Exposure: No Tobacco Use In Past 30 Days: No Smoking Status: Former smoker Tobacco Type: Cigarettes - Alcohol History How Often Do You Have a Drink Containing Alcohol: Never - Substance Use History Substance History: No History of Abuse - Travel History Recent Travel in the [place] Within the Last 8 Weeks: No Recent Travel Out of the Country Within the Last 8 Weeks: No - Immunization History Tetanus Immunization: Unsure Hx Influenza Vaccine This Season: No Medications and Allergies Active Medications: Active Medications Acetaminophen (Tylenol) 650 mg PO Q4H PRN PRN Reason: Temp > 100.4 Last Admin: 10/05/17 06:16 Dose: 650 mg Al Hydroxide/Mg Hydroxide (Milk Of Magnesia Liq) 30 ml PO Q12H PRN PRN Reason: Mild Constipation Albuterol (Duoneb Neb (Prn)) 1 ampul NEB Q4HR NEB PRN PRN Reason: SOB/WHEEZING Albuterol (Duoneb Neb (Kendy)) 1 ampul NEB Q6HR WHILE AWAKE NEB [facility] Last Admin: 10/05/17 12:54 Dose: 1 ampul Bisacodyl (Dulcolax Supp) 10 mg RECTAL DAILY PRN PRN Reason: SEVERE CONSITIPATION Clonidine HCl (Catapres) 0.1 mg PO Q6H PRN PRN Reason: SBP>160 and/or DBP>100; HR>60 Last Admin: 10/05/17 06:16 Dose: 0.1 mg Enalaprilat (Vasotec Inj) 1.25 mg IV.PUSH Q6H PRN PRN Reason: SBP> OR = 180, DBP> OR = 100 Last Admin: 10/05/17 17:07 Dose: 1.25 mg Enoxaparin Sodium (Lovenox Inj) 40 mg SQ DAILY [facility] Last Admin: 10/05/17 08:34 Dose: 40 mg Furosemide (Lasix) 20 mg PO BID@0900,1800 [facility] Guaifenesin (Mucinex Er) 600 mg PO BID [facility] Last Admin: 10/05/17 08:35 Dose: 600 mg Haloperidol Lactate (Haldol Inj) 2 mg IV.PUSH Q6H PRN PRN Reason: AGITATION Sodium Chloride (Ns Inj) 1,000 mls @ 150 mls/hr IV.CONT .Q6H40M [facility] Last Admin: 10/05/17 06:29 Dose: Not Given Pamidronate Disodium 60 mg/ (Sodium Chloride) 520 mls @ 130 mls/hr IV.SIG ONCE ONE Stop: 10/05/17 19:59 Last Admin: 10/05/17 15:55 Dose: 130 mls/hr Levofloxacin/Dextrose (Levaquin 750 Mg Premix Inj) 150 mls @ 100 mls/hr IV.SIG Q24H [facility] Lactulose (Lactulose Liq) 30 ml PO DAILY PRN PRN Reason: SEVERE CONSITIPATION Lorazepam (Ativan) 1 mg PO Q4H PRN PRN Reason: ANXIETY Lorazepam (Ativan Inj) 0.5 mg IV.PUSH Q4H PRN PRN Reason: ANXIETY Last Admin: 10/05/17 18:00 Dose: 0.5 mg Methylprednisolone Sodium Succinate (Solumedrol Inj) 40 mg IV.PUSH Q6H KEND[facility] Last Admin: 10/05/17 16:00 Dose: 40 mg Metoclopramide HCl (Reglan Inj) 5 mg IV.PUSH Q6HR PRN; Protocol PRN Reason: NAUSEA OR VOMITING Last Admin: 10/05/17 08:41 Dose: 5 mg Metoprolol Tartrate (Lopressor) 25 mg PO BID [facility] Metoprolol Tartrate (Lopressor Inj) 5 mg IV.PUSH Q6H PRN PRN Reason: SBP>160, DBP>90 Morphine Sulfate (Oramorph Sr) 15 mg PO BID [facility] Last Admin: 10/05/17 08:35 Dose: 15 mg Morphine Sulfate (Morphine Inj) 2 mg IV.PUSH Q3H PRN PRN Reason: BREAKTHROUGH PAIN Last Admin: 10/05/17 16:19 Dose: 2 mg Senna/Docusate Sodium (Mary-Colace) 1 tab PO BID [facility] Last Admin: 10/05/17 08:35 Dose: 1 tab Sennosides (Senokot) 17.2 mg PO Q12H PRN PRN Reason: Moderate Constipation Sodium Chloride (Ns Flush) 2 ml IV.FLUSH PRN PRN PRN Reason: FLUSH AFTER USING IV ACCESS Allergies Allergy/AdvReac Type Severity Reaction Status Date / Time diatrizoate meglumine Allergy Severe Unverified 05/06/17 01:24 gadobenic acid Allergy Severe Unverified 05/06/17 01:24 gadodiamide Allergy Severe Unverified 05/06/17 01:24 gadoteridol Allergy Severe Unverified 05/06/17 01:24 iodine Allergy Severe Unverified 05/06/17 01:24 iodixanol Allergy Severe Unverified 05/06/17 01:24 iohexol Allergy Severe Unverified 05/06/17 01:24 potassium iodide Allergy Severe Unverified 05/06/17 01:24 povidone-iodine Allergy Severe Unverified 05/06/17 01:24 pseudoephedrine Allergy Severe Unverified 05/06/17 01:24 sodium iodide Allergy Severe Unverified 05/06/17 01:24 sodium iodide Allergy Severe Unverified 05/06/17 01:24 Home Medications Medication Instructions Recorded Confirmed Type albuterol sulfate 2.5 mg INHALATION Q4H PRN 10/03/17 10/03/17 History lorazepam 2 mg PO DAILY 10/03/17 10/03/17 History morphine 15 mg PO Q4-6H PRN 10/03/17 10/03/17 History morphine 20 mg PO Q12H 10/03/17 10/03/17 History sulfamethoxazole-trimethoprim 1 tab PO BID 10/03/17 10/03/17 History Advance Directives Living Will: No Physical Exam Vital Signs: Vital Signs - 24 hr 10/04/17 20:00 10/04/17 20:07 10/04/17 23:56 Temperature 97.6 F Pulse Rate 110 H 120 H Respiratory Rate 18 24 18 Blood Pressure 181/97 H Pulse Oximetry 97 95 10/05/17 00:00 10/05/17 06:01 10/05/17 06:24 Temperature 97.3 F L Pulse Rate 106 H 94 H Respiratory Rate 18 Blood Pressure 188/93 H Pulse Oximetry 97 94 L 10/05/17 08:00 10/05/17 08:26 10/05/17 11:02 Temperature 97.0 F L 97.8 F Pulse Rate 80 96 H 97 H Respiratory Rate 18 20 Blood Pressure 180/95 H 170/71 H Pulse Oximetry 93 L 97 10/05/17 12:00 10/05/17 12:56 10/05/17 16:00 Temperature Pulse Rate 98 H 92 H 99 H Respiratory Rate 18 Blood Pressure Pulse Oximetry 10/05/17 16:06 10/05/17 17:20 Temperature 98.2 F Pulse Rate 98 H Respiratory Rate 20 Blood Pressure 175/77 H 163/82 H Pulse Oximetry 98 I&O: Intake & Output 10/03/17 10/04/17 10/05/17 10/06/17 06:59 06:59 06:59 06:59 Intake Total 690 / 690 1230 / 1230 200 / 200 Output Total 300 / 300 Balance 690 / 690 930 / 930 200 / 200 Weight 110 kg Physical Exam: CONSTITUTIONAL/GENERAL: This is an overweight, confused patient. TUBES/LINES/DRAINS: PIV. SKIN: No jaundice, rashes, or lesions. Ecchymoses on upper extremities. No wounds seen anteriorly. Skin temperature appropriate. Not diaphoretic. HEAD: Atraumatic. Normocephalic. EYES: Pupils equal and round and reactive. Extraocular motions intact. No scleral icterus. No injection or drainage. Fundi not examined. ENT: Hearing grossly normal. Nose without bleeding or purulent drainage. Mouth closed. NECK: Trachea midline. CARDIOVASCULAR: Regular rate and rhythm without murmurs. RESPIRATORY/CHEST: Diminished breath sounds. GASTROINTESTINAL: Abdomen soft, non-tender, protuberant. Bowel sounds present. GENITOURINARY: Without palpable bladder distension. MUSCULOSKELETAL: Extremities without clubbing, cyanosis, or edema. No mottling or clubbing. LYMPHATICS: Not examined. NEUROLOGICAL: Awake and confused. Unable to answer questions appropriately. Moves all extremities. PSYCHIATRIC: Confused. Diagnostic Tests Laboratory: Laboratory Results - last 72 hr 10/03/17 10/03/17 10/03/17 21:45 21:45 21:45 WBC 11.2 H RBC 5.13 Hgb 15.2 Hct 45.7 MCV 89.1 MCH 29.7 MCHC 33.3 RDW 13.9 Plt Count 336 MPV 8.0 Neut % (Auto) 68.4 Lymph % (Auto) 16.7 Bracken % (Auto) 13.2 H Eos % (Auto) 0.9 Baso % (Auto) 0.8 Neut # (Auto) 7.7 Lymph # (Auto) 1.9 Bracken # (Auto) 1.5 H Eos # (Auto) 0.1 Baso # (Auto) 0.1 WBC Differential . Differential Comment Auto diff final D-Dimer Quant (PE/DVT) 1.86 H Puncture Site Patient Temperature O2 Saturation ABG pH ABG pCO2 ABG pO2 ABG HCO3 ABG O2 Content ABG Base Excess ABG Methemoglobin Juve Test Hemoglobin Carboxyhemoglobin O2 Delivery Device Liter Flow Inspired O2 Critical Value Sodium 130 L Potassium 4.4 Chloride 94 L Carbon Dioxide 22.9 Anion Gap 13 BUN 24 H Creatinine 1.25 H Estimated GFR 43 L Random Glucose 118 H Calcium 12.7 H* Prot Corrected Calcium 12.1 H* Total Bilirubin 0.8 AST 55 H ALT 23 Alkaline Phosphatase 98 Total Protein 8.0 Albumin 3.4 10/04/17 10/04/17 10/04/17 07:13 07:15 16:35 WBC 8.2 RBC 4.83 Hgb 14.7 Hct 43.3 MCV 89.7 MCH 30.5 MCHC 34.0 RDW 13.8 Plt Count 283 MPV 7.6 Neut % (Auto) 86.6 H Lymph % (Auto) 9.8 Bracken % (Auto) 2.9 Eos % (Auto) 0.3 Baso % (Auto) 0.4 Neut # (Auto) 7.1 Lymph # (Auto) 0.8 L Bracken # (Auto) 0.2 Eos # (Auto) 0.0 Baso # (Auto) 0.0 WBC Differential . Differential Comment Auto diff final D-Dimer Quant (PE/DVT) Puncture Site Patient Temperature O2 Saturation ABG pH ABG pCO2 ABG pO2 ABG HCO3 ABG O2 Content ABG Base Excess ABG Methemoglobin Juve Test Hemoglobin Carboxyhemoglobin O2 Delivery Device Liter Flow Inspired O2 Critical Value Sodium 133 L 134 L Potassium 4.9 4.7 Chloride 99 101 Carbon Dioxide 21.5 22.5 Anion Gap 13 11 BUN 25 H 24 H Creatinine 1.11 H 0.96 Estimated GFR 49 L 58 L Random Glucose 116 H 122 H Calcium 12.0 H* 10.9 H D Prot Corrected Calcium 11.7 H* Total Bilirubin 0.7 AST 53 H ALT 23 Alkaline Phosphatase 94 Total Protein 7.6 Albumin 3.1 L 10/04/17 10/05/17 21:01 13:00 WBC RBC Hgb Hct MCV MCH MCHC RDW Plt Count MPV Neut % (Auto) Lymph % (Auto) Bracken % (Auto) Eos % (Auto) Baso % (Auto) Neut # (Auto) Lymph # (Auto) Bracken # (Auto) Eos # (Auto) Baso # (Auto) WBC Differential Differential Comment D-Dimer Quant (PE/DVT) Puncture Site Left radial Patient Temperature 98.6 O2 Saturation 90 ABG pH 7.38 ABG pCO2 41 ABG pO2 67 ABG HCO3 23 ABG O2 Content 17.7 ABG Base Excess -1.0 ABG Methemoglobin 0.9 Juve Test Present Hemoglobin 14.0 Carboxyhemoglobin 0.8 O2 Delivery Device Nasal cannula Liter Flow 4.00 Inspired O2 21 Critical Value No Sodium 138 Potassium 4.1 Chloride 103 Carbon Dioxide 22.2 Anion Gap 13 BUN 25 H Creatinine 0.84 Estimated GFR 68 L Random Glucose 115 H Calcium 10.9 H Prot Corrected Calcium Total Bilirubin AST ALT Alkaline Phosphatase Total Protein Albumin Result Diagrams: 10/06/17 05:47 10/06/17 05:47 Patient/Family Conference Issues Discussed: * Palliative care role, purpose, approach * Additional medical, psychosocial, and spiritual history * Patients general health, functional status, and cognitive changes in the months leading up to the current hospitalization * Patient/family understanding of the current medical problems * Patient/family understanding of prognosis * Patients goals of care as best understood from advance directives and/or conversations and/or values * Current medical treatment options and benefits/burdens of those options * Likely scenarios comparing ongoing aggressive care with a transition to comfort measures only * Questions answered to the best of my ability * Palliative care contact information provided Assessment and Plan - Disease Oriented Problem List (1) Lung cancer (2) Metastatic disease (3) Hypercalcemia (4) Renal insufficiency (5) Hypoxia (6) Osteoarthritis (7) COPD (chronic obstructive pulmonary disease) - Symptom Scale (1) Weakness 0-10 Scale: Unable to quantify (2) Pain 0-10 Scale: Unable to quantify (3) Dyspnea 0-10 Scale: Unable to quantify Pertinent Non-Medical Issues: Psychosocial: . Supported by her friends, Nelly and Esperanza, a brother and a nephew. 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 Spiritual: Unknown. Legal: Patient is not capacitated to make her own health care decisions, uncertain if she will regain capacity. Will need additional social history to determine legal healthcare proxy decision-maker. Ethical issues impacting care: No known concerns at this time. Important Contacts: * Nelly Cano, friend: [phone] Prognosis: Patient with widespread metastatic disease, hypercalcemia, overall prognosis appears poor. Hospice appropriate if goals are comfort oriented. Code Status: Full Code Plan: * Decision Maker: Patient is not capacitated to make her own health care decisions, uncertain if she will regain capacity. Will need additional social history to determine legal healthcare proxy decision-maker. * FULL CODE * Yola Robles LCSW with Palliative care has been unable to reach Nelly, no other family identified. Nursing staff indicates she may have a daughter. I have asked staff to get names and phone numbers and relationship for any visitors. Requested accurate search for family. Palliative care is unable to assist with further clarification of treatment goals until we can determine legal healthcare proxy decision-maker. * SYMPTOMS: Confusion: Secondary to hypercalcemia of malignancy. Aredia ordered. Avoid sedating medications. Will monitor. Pain: No obvious signs of pain during my visit. Potential sources include widespread metastatic disease. Would avoid pain medication at this time given her level of confusion. Dyspnea : Due to widespread metastatic disease. * Palliative care number provided. * Palliative care will continue to follow throughout hospital course to assist with symptom management and clarification of goals as needed. Appreciation Thank you for the opportunity to participate in the care of Sylvie Young. Attestation Attestation: To help prompt me to consider important information that might be impacting today's encounter and assessment, information from prior notes written by myself or my colleagues may have been "brought forward" into today's note. My signature on this note, however, is an attestation that I personally performed the exam, history, and/or decision-making noted today, and, unless otherwise indicated, the interactions with patient, family, and staff as well as the review of records all occurred today. I also attest that the listed assessment and stated plan reflect my best clinical judgment today based on the combination of historical information, prior notes, and today's exam/ interactions. When time spent is documented, it refers only to time spent today by the signer, or if indicated, combined time spent today by collaborating physician/nurse practitioner.
[2017-10-05] MEDS: Metoprolol Tartrate 25 MG Tablet PO SCH (20:26)
--- NOTE | 2017-10-05 20:31 | CT ---
EXAM DATE: 10/05/2017 8:04 PM EDT AGE/SEX: 67 years / Female INDICATIONS: Altered mental status. CLINICAL DATA: This is the patient's initial encounter. Patient reports that signs and symptoms have been present for 1 day and indicates a pain score of 0/10. MEDICAL/SURGICAL HISTORY: Chronic obstructive pulmonary disease. Hysterectomy. RADIATION DOSE: 42.45 CTDI (mGy) COMPARISON: No prior exams available for comparison. TECHNIQUE: CT of the head without contrast. Using automated exposure control and adjustment of the mA and/or kV according to patient size, radiation dose was kept as low as reasonably achievable to ob tain optimal diagnostic quality images. DICOM format image data is available electronically for revi ew and comparison. FINDINGS: Cerebrum: Abnormal. There are 2 mildly hyperdense masses in the left high convexity parietal region measuring 8 mm (image #22) and 9 mm (image #24). There is also suggestion of a third mass adjacent to the left frontal horn measuring 7 mm (image #20). No evidence of midline shift. There is good krause-w dov matter differentiation. No extra-axial fluid or blood. Posterior Fossa: The cerebellum and brainstem are intact. The 4th ventricle is midline. The cerebe llopontine angle is unremarkable. Extracranial: The visualized portion of the orbits is intact. Skull: The calvaria is intact. No evidence of skull fracture. CONCLUSION: 1. Abnormal noncontrast CT brain demonstrating 2 or 3 masses in the left supratentorial brain. Recom mend further characterization of these lesions and to evaluate for additional lesions using MRI of th e brain with and without contrast. Electronically signed by: Donte Ramírez MD 10/05/2017 8:30 PM EDT
--- NOTE | 2017-10-05 20:47 | CT ---
EXAM DATE: 10/05/2017 8:09 PM EDT AGE/SEX: 67 years / Female INDICATIONS: Metastatic disease. CLINICAL DATA: This is the patient's initial encounter. Patient reports that signs and symptoms have been present for 1 day and indicates a pain score of 0/10. MEDICAL/SURGICAL HISTORY: Chronic obstructive pulmonary disease. Hysterectomy. RADIATION DOSE: 17.59 CTDI (mGy) COMPARISON: [facility] [place]BDOMEN & PELVIS W/O CONTRAST, 05/06/2017. . TECHNIQUE: Multiple contiguous axial images were obtained through the abdomen. Images were obtained using multiple row detector helical technique. Using automated exposure control and adjustment of the mA and/or kV according to patient size, radiation dose was kept as low as reasonably achievable to o btain optimal diagnostic quality images. DICOM format image data is available electronically for rev iew and comparison. FINDINGS: Examination is abnormal demonstrating multiple varying sized nodules in the visualized lower lungs me asuring up to 1.5 cm. There is also subsegmental consolidation with air bronchograms in the lower lat eral left lung. There are also multiple soft tissue nodules in the subcutaneous soft tissues of the a nterior abdominal wall, inferior axilla and posterior gluteal region, with the nodules measuring up t o 1.5 cm in size. The osseous structures are grossly intact. The liver, kidneys, pancreas, and adrenal glands are grossly intact for noncontrast technique. Latera l to the left adrenal gland, there is a 2.5 cm mass noncalcified. There is also a 1.5 cm nodule in th e retroperitoneum on the right side posterior to the cecum. Abdominal aorta is normal in dimension. N o dilated loops of small or large bowel. Bladder margins are smooth. CONCLUSION: 1. Abnormal examination demonstrating multiple pulmonary nodules, multiple subcutaneous nodules, and 2 nodules in the right retroperitoneum and lateral to the left adrenal gland. The distribution and n umber of abnormalities suggest hematogenous process such as metastatic disease. Electronically signed by: Donte Ramírez MD 10/05/2017 8:45 PM EDT
[2017-10-06] MEDS: MethylPREDNISolone Sod Succinate Inj 40 MG/ML Vial IV.PUSH SCH ×2 (03:46→08:41)
[2017-10-06 06:16] LABS: Hematocrit 40.8 % (35.0-46.0); Hemoglobin 13.4 gm/dL (11.6-15.3); Mean Corpuscular HGB Conc 32.8 % (32.0-36.0); Mean Corpuscular Hemoglobin 29.5 pg (27.0-34.0); Mean Corpuscular Volume 89.8 fL (80.0-100.0); Mean Platelet Volume 7.6 fL (7.0-11.0); Platelet Count 298 th/mm3 (150-450); Red Blood Count 4.54 mil/mm3 (4.00-5.30); Red Cell Distribution Width 14.1 % (11.6-17.2); White Blood Count 14.2 th/mm3 (4.0-11.0)
[2017-10-06 06:42] LABS: Carbon Dioxide 21.6 meq/L (21.0-32.0)
[2017-10-06] MEDS: Morphine Sulfate 15 MG SR Tablet PO SCH ×2 (08:40→21:43)
[2017-10-06] MEDS: Furosemide 20 MG Tablet PO SCH ×2 (08:41→17:19)
[2017-10-06] MEDS: Metoprolol Tartrate 25 MG Tablet PO SCH ×2 (08:41→21:43)
[2017-10-06] MEDS: guaiFENesin 600 MG ER Tablet PO SCH ×2 (08:41→21:43)
[2017-10-06] MEDS: Enoxaparin Inj 40 MG/0.4 ML Syringe SQ SCH (08:41)
[2017-10-06] MEDS: Senna/Docusate Sodium 8.6/50 MG Tablet PO SCH ×2 (08:41→21:44)
--- NOTE | 2017-10-06 09:29 | P.PN ---
Physical Exam Vital signs: Vital Signs 10/05/17 11:02 10/05/17 12:00 10/05/17 12:56 Temperature 97.8 F Pulse Rate 97 H 98 H 92 H Respiratory Rate 20 18 Blood Pressure 170/71 H Pulse Oximetry 97 10/05/17 16:00 10/05/17 16:06 10/05/17 17:20 Temperature 98.2 F Pulse Rate 99 H 98 H Respiratory Rate 20 Blood Pressure 175/77 H 163/82 H Pulse Oximetry 98 10/05/17 20:00 10/05/17 20:10 10/05/17 20:18 Temperature 97.7 F Pulse Rate 88 77 Respiratory Rate 18 16 Blood Pressure 171/88 H Pulse Oximetry 96 10/05/17 20:31 10/05/17 20:34 10/05/17 22:13 Temperature Pulse Rate 94 H Respiratory Rate 16 Blood Pressure 155/87 H Pulse Oximetry 97 10/05/17 23:01 10/06/17 00:00 10/06/17 01:52 Temperature 97.5 F L Pulse Rate 81 82 98 H Respiratory Rate 18 18 Blood Pressure 173/88 H Pulse Oximetry 97 10/06/17 03:40 10/06/17 03:43 10/06/17 07:43 Temperature 97.4 F L Pulse Rate 75 78 79 Respiratory Rate 16 Blood Pressure 146/78 H Pulse Oximetry 98 10/06/17 08:00 10/06/17 08:36 Temperature 98.6 F Pulse Rate 89 89 Respiratory Rate 18 24 Blood Pressure 160/85 H Pulse Oximetry 94 L 94 L Intake & Output 10/05/17 10/06/17 10/06/17 18:59 06:59 18:59 Intake Total 200 / 200 795 / 795 Output Total 750 / 750 Balance 200 / 200 45 / 45 Weight 108 kg 108 kg Intake: IV 675 / 675 Levaquin 750 mg Premix Inj 150 155 / 155 ML @ 100 mls/hr IV.SIG Q24H MAX Rx#:[id number] Aredia Inj 60 MG In NS Inj 500 520 / 520 ML @ 130 mls/hr IV.SIG ONCE ONE Rx#:[id number] Oral 200 / 200 120 / 120 Output: Urine 750 / 750 Other: # Voids 4 1 Narrative: Subjective Interval history: F/up metastatic breast cancer. The patient is agitated on /off. Pleasantly confused trying to get out of bed, at risk of falls. Falls precautions. No fever or chills. Physical exam: GENERAL: female sleeping in bed NAD. Agitated on/off, in restraints. Pleasantly confused. SKIN: Warm and dry. HEENT: AT/NC. Pupils equal and round. MMM. NECK: Supple no tender LAD or JVD. HEART: Tachycardic no m/r/g. LUNGS: Course breath sounds with diffuse wheezing. ABDOMEN: +BS x4Q, soft, NT, ND. EXTREMITIES: No LE edema. 2+ pedal pulses. Assessment and Plan 67 YOWF with OA, COPD, spinal stenosis, and history of tobacco abuse admitted on 10/03 with shortness of breath, vomiting, and diffuse tenderness throughout her body. She had recently been diagnosed with a right breast cancer and is awaiting biopsy results from [facility]. 1. Metastatic breast cancer - In the process of working up her SOB, CT chest revealed widespread neoplastic disease involving the lung, mediastinum, right breast, chest and abdominal wall , liver, and upper abdomen - Check CT A/P to further evaluate extent of metastases - Oncology consulted, recommended started an aromatase inhibitor while waiting for pathology results - Started Anastrazole - Consult palliative care to clarify goals and wishes - Pain control 2. Dyspnea - Elevated D-dimer but patient w/ severe contrast allergy so VQ scan was done which showed low probability of PE - CT chest showing widespread metastatic disease as above - Supplemental O2 3. Hypercalcemia - Calcium 12.7 on admission, down to 10.9 yesterday afternoon after IV hydration - Continue to monitor, today's labs pending - Likely secondary to malignancy as well as possible bony involvement - IV fluid hydration 4. BERNICE, resolved - Creatinine 1.25 on admission, down to 0.96 this morning - BUN elevated at 24 - Continue IV hydration 5. COPD exacerbation - Pt with increased sputum, cough, and SOB - Continue Levaquin and Solumedrol - DuoNeb - Supplemental O2 6. Anxiety- Ativan 1 mg PO Q4 PRN Agitated on/off 7. HTN - BPs significantly elevated - Start metoprolol 25 mg PO BID since also tachycardic - Titrate as needed - Continue to monitor DVT prophylaxis: Lovenox Discussed with the patient, nurse Results - Labs CBC & Chem 7: 10/06/17 05:47 10/06/17 05:47 Laboratory Results - last 24 hr 10/05/17 10/06/17 10/06/17 13:00 05:47 05:47 WBC 14.2 H RBC 4.54 Hgb 13.4 Hct 40.8 MCV 89.8 MCH 29.5 MCHC 32.8 RDW 14.1 Plt Count 298 MPV 7.6 Sodium 138 140 Potassium 4.1 4.0 Chloride 103 107 Carbon Dioxide 22.2 21.6 Anion Gap 13 11 BUN 25 H 24 H Creatinine 0.84 0.72 Estimated GFR 68 L 81 L Random Glucose 115 H 105 Calcium 10.9 H 11.0 H - Imaging Impressions Abdomen/Pelvis CT 10/05/17 00:00 CONCLUSION: 1. Abnormal examination demonstrating multiple pulmonary nodules, multiple subcutaneous nodules, and 2 nodules in the right retroperitoneum and lateral to the left adrenal gland. The distribution and number of abnormalities suggest hematogenous process such as metastatic disease. Head CT 10/05/17 00:00 CONCLUSION: 1. Abnormal noncontrast CT brain demonstrating 2 or 3 masses in the left supratentorial brain. Recommend further characterization of these lesions and to evaluate for additional lesions using MRI of the brain with and without contrast. Assessment and Plan - Assessment (1) COPD (chronic obstructive pulmonary disease) Code(s): J44.9 - Chronic obstructive pulmonary disease, unspecified Status: Chronic (2) Hypoxia Code(s): R09.02 - Hypoxemia Status: Acute (3) Metastatic disease Code(s): C79.9 - Secondary malignant neoplasm of unspecified site Status: Acute (4) Hypercalcemia Code(s): E83.52 - Hypercalcemia Status: Acute (5) Renal insufficiency Code(s): N28.9 - Disorder of kidney and ureter, unspecified Status: Acute
[2017-10-06] MEDS: Morphine Inj 4 MG/ML Vial IV.PUSH PRN ×4 (11:29→23:15)
--- NOTE | 2017-10-06 14:00 | NM ---
INDICATIONS: Metastases. Lung cancer. CLINICAL DATA: This is the patient's initial encounter. Patient reports that signs and symptoms have been present for 1 day and indicates a pain score of Nonresponsive. MEDICAL/SURGICAL HISTORY: Chronic obstructive pulmonary disease. Carcinoma, lung. Hysterectomy . COMPARISON: No prior exams available for comparison. TECHNIQUE: . . Whole body bone scan was performed at 2-3 hours. No correlative bone scan available for comparison. DOSE: 30.1 mCi Tc99m MDP IV FINDINGS: There is mild uptake involving the lower thoracic spine, multiple areas in the lumbar spine at the ap pearance of degenerative uptake with degenerative uptake in the patient's shoulders. There is focal u ptake involving probably the left posterior third rib nonspecific possibly traumatic and there are pu nctate areas of uptake involving sutural junctions of the patient's skull most likely chronic. CONCLUSION: 1. There are areas of uptake within multiple bony structures most likely degenerative and possibly d ue to old trauma. No definite convincing evidence for metastatic disease based on this examination. Electronically signed by: Marline Sutton MD 10/06/2017 1:58 PM EDT
--- NOTE | 2017-10-06 14:28 | P.PNONC ---
Subjective Interval history: Afebrile Patient has just returned from nuclear med study Asking us to call her with results as she wants to go home States she has a brother that lives close by. States his name is Humble Lopez. Does not know his number however states her friend Jackie has all of her friends and family's phone numbers. Patient's conversation seems to go in and out of lucidity Objective Vital Signs/Intake & Output: Vital Signs 10/05/17 16:00 10/05/17 16:06 10/05/17 17:20 Temperature 98.2 F Pulse Rate 99 H 98 H Respiratory Rate 20 Blood Pressure 175/77 H 163/82 H Pulse Oximetry 98 10/05/17 20:00 10/05/17 20:10 10/05/17 20:18 Temperature 97.7 F Pulse Rate 88 77 Respiratory Rate 18 16 Blood Pressure 171/88 H Pulse Oximetry 96 10/05/17 20:31 10/05/17 20:34 10/05/17 22:13 Temperature Pulse Rate 94 H Respiratory Rate 16 Blood Pressure 155/87 H Pulse Oximetry 97 10/05/17 23:01 10/06/17 00:00 10/06/17 01:52 Temperature 97.5 F L Pulse Rate 81 82 98 H Respiratory Rate 18 18 Blood Pressure 173/88 H Pulse Oximetry 97 10/06/17 03:40 10/06/17 03:43 10/06/17 07:43 Temperature 97.4 F L Pulse Rate 75 78 79 Respiratory Rate 16 Blood Pressure 146/78 H Pulse Oximetry 98 10/06/17 08:00 10/06/17 08:36 10/06/17 11:33 Temperature 98.6 F 97.6 F Pulse Rate 89 89 69 Respiratory Rate 18 24 20 Blood Pressure 160/85 H 185/92 H Pulse Oximetry 94 L 94 L 97 10/06/17 11:54 Temperature Pulse Rate Respiratory Rate Blood Pressure 169/89 H Pulse Oximetry Intake & Output 10/05/17 10/06/17 10/06/17 18:59 06:59 18:59 Intake Total 200 / 200 795 / 795 Output Total 750 / 750 Balance 200 / 200 45 / 45 Weight 238 lb 1.588 oz 238 lb 1.588 oz Intake: IV 675 / 675 Levaquin 750 mg Premix Inj 150 155 / 155 ML @ 100 mls/hr IV.SIG Q24H KENDY Rx#:[id number] Aredia Inj 60 MG In NS Inj 500 520 / 520 ML @ 130 mls/hr IV.SIG ONCE ONE Rx#:[id number] Oral 200 / 200 120 / 120 Output: Urine 750 / 750 Other: # Voids 4 1 Result Diagrams: 10/06/17 05:47 10/06/17 05:47 Laboratory Results: Laboratory Results - last 24 hr 10/05/17 10/06/17 10/06/17 13:00 05:47 05:47 WBC 14.2 H RBC 4.54 Hgb 13.4 Hct 40.8 MCV 89.8 MCH 29.5 MCHC 32.8 RDW 14.1 Plt Count 298 MPV 7.6 Sodium 138 140 Potassium 4.1 4.0 Chloride 103 107 Carbon Dioxide 22.2 21.6 Anion Gap 13 11 BUN 25 H 24 H Creatinine 0.84 0.72 Estimated GFR 68 L 81 L Random Glucose 115 H 105 Calcium 10.9 H 11.0 H Imaging Studies: Impressions Abdomen/Pelvis CT 10/05/17 00:00 CONCLUSION: 1. Abnormal examination demonstrating multiple pulmonary nodules, multiple subcutaneous nodules, and 2 nodules in the right retroperitoneum and lateral to the left adrenal gland. The distribution and number of abnormalities suggest hematogenous process such as metastatic disease. Head CT 10/05/17 00:00 CONCLUSION: 1. Abnormal noncontrast CT brain demonstrating 2 or 3 masses in the left supratentorial brain. Recommend further characterization of these lesions and to evaluate for additional lesions using MRI of the brain with and without contrast. Bone Scan Nuclear Medicine 10/06/17 06:00 CONCLUSION: 1. There are areas of uptake within multiple bony structures most likely degenerative and possibly due to old trauma. No definite convincing evidence for metastatic disease based on this examination. Medications: Active Medications Generic Name Dose Route Start Last Admin Trade Name Freq PRN Reason Stop Dose Admin Acetaminophen 650 mg 10/04/17 01:34 10/05/17 06:16 Tylenol PO 650 mg Q4H PRN Administration Temp > 100.4 Albuterol 1 ampul 10/04/17 01:31 10/06/17 01:44 Duoneb Neb (Prn) NEB 1 ampul Q4HR NEB PRN Administration SOB/WHEEZING Albuterol 1 ampul 10/04/17 20:00 10/06/17 13:35 Duoneb Neb (Kendy) NEB Not Given Q6HR WHILE AWAKE NEB KENDY Clonidine HCl 0.1 mg 10/04/17 19:33 10/05/17 06:16 Catapres PO 0.1 mg Q6H PRN Administration SBP>160 and/or DBP>100; HR>60 Enalaprilat 1.25 mg 10/05/17 16:38 10/06/17 11:40 Vasotec Inj IV.PUSH 1.25 mg Q6H PRN Administration SBP> OR = 180, DBP> OR = 100 Enoxaparin Sodium 40 mg 10/05/17 09:00 10/06/17 08:41 Lovenox Inj SQ 40 mg DAILY KENDY Administration Furosemide 20 mg 10/06/17 09:00 10/06/17 08:41 Lasix PO 20 mg BID@0900,1800 KENDY Administration Guaifenesin 600 mg 10/04/17 14:45 10/06/17 08:41 Mucinex Er PO 600 mg BID KENDY Administration Sodium Chloride 1,000 mls @ 150 mls/hr 10/04/17 01:45 10/05/17 06:29 Ns Inj IV.CONT Not Given .Q6H40M KENDY Levofloxacin/Dextrose 150 mls @ 100 mls/hr 10/05/17 22:00 10/06/17 01:49 Levaquin 750 Mg Premix Inj IV.SIG Infused Q24H KENDY Infusion Lorazepam 0.5 mg 10/05/17 16:35 10/06/17 02:56 Ativan Inj IV.PUSH 0.5 mg Q4H PRN Administration ANXIETY Methylprednisolone Sodium Succinate 40 mg 10/04/17 08:00 10/06/17 08:41 Solumedrol Inj IV.PUSH 40 mg Q6H KENDY Administration Metoclopramide HCl 5 mg 10/04/17 01:34 10/05/17 08:41 Reglan Inj IV.PUSH 5 mg Q6HR PRN Administration NAUSEA OR VOMITING Protocol Metoprolol Tartrate 25 mg 10/05/17 21:00 10/06/17 08:41 Lopressor PO 25 mg BID KENDY Administration Morphine Sulfate 15 mg 10/04/17 09:00 10/06/17 08:40 Oramorph Sr PO 15 mg BID KENDY Administration Morphine Sulfate 2 mg 10/04/17 15:37 07/17/18 11:29 Morphine Inj IV.PUSH 2 mg Q3H PRN Administration BREAKTHROUGH PAIN Senna/Docusate Sodium 1 tab 10/04/17 09:00 10/06/17 08:41 Mary-Colace PO 1 tab BID KENDY Administration Objective Remarks: GENERAL: Older obese female resting in bed in no obvious distress SKIN: Warm and dry. Few scattered bruises HEAD: Normocephalic. EYES: No scleral icterus. No injection or drainage. NECK: Supple, trachea midline. CARDIOVASCULAR: Distant heart sounds. RESPIRATORY: Clear but diminished anteriorly. Breathing unlabored at rest. GASTROINTESTINAL: Abdomen soft, tender, nondistended. EXTREMITIES: No cyanosis, or edema. MUSCULOSKELETAL: Generalized weakness NEUROLOGICAL: Patient talking with eyes closed. Follows commands. Thought process not clear. Assessment/Plan - Plan Ms. Young is a 67-year-old female patient who presented to the hospital with shortness of breath and vomiting. She had reported developing a right breast mass 2 weeks ago was in the process of having this evaluated and seeing Dr. Spencer Burton in followup. Biopsy of the right breast was performed at [facility]. She was found to have hypercalcemia and a CT scan of the chest showed widespread neoplastic disease involving the lung, mediastinum, the right breast. There is also a lesion in the chest, abdominal wall, liver, upper abdomen. We have obtained her surgical pathology report from . Collected 09/28/17, right chest wall mass, core biopsy: Poorly differentiated adenocarcinoma, primary of the lung. The tumor is associated with extensive necrosis. Classified as primary adenocarcinoma of the lung. 1. Patient remains with intermittent lucidity. 2. Bone scan done today with results pending. 3. Patient status post 1 dose of pamidronate. Continue to monitor kidney function, calcium levels. - Attending Statement The exam, history, and the medical decision-making described in the above note were completed with the assistance of the mid-level provider. I reviewed and agree with the findings presented. I attest that I had a [id number] encounter with the patient on the same day, and personally performed and documented my assessment and findings in the medical record. Patient has metastatic lung cancer with extensive mets. Now also found to have brain lesions. having headaches, pain not controlled. considering going home with hospice. explained to her that we could palliate symptoms with brain xrt. Will ask radiation oncology to see patient. Will order Brain MRI with contrast. Increased Morphine to 4mg Q2H. Long discussion with family.
--- NOTE | 2017-10-06 15:59 | P.PNPAL ---
Reason for Visit Reason for visit: a. To assist with evaluation and management of symptoms including: confusion, cough. b. To assist medical decision maker(s) with: better understanding of current medical conditions; weighing benefits/burdens of medical treatment options; making medical treatment decisions. Subjective Subjective/Interval History: Patient is seen and examined in room. Also present Yola Robles LCSW and JESSIKA Shelley for a portion of this visit. Patient is awake and alert, intermittently mildly confused. She shows insight and judgment to conversation. She reports that she has been diagnosed with "lung cancer, liver cancer and breast cancer." Additional test results since my initial visit: * CT head: 2 or 3 masses in the left supratentorial brain, recommend MRI. * CT abd/pelvis: Abnormal exam demonstrating multiple pulmonary nodules, multiple subcutaneous nodules and 2 nodules in the right retroperitoneum and lateral to the left adrenal gland suggestive of metastatic disease. * Bone scan: Areas of uptake within multiple bony structures most likely degenerative and possibly due to old trauma, no definite convincing evidence for metastatic disease. * Calcium: 11.0 today She indicates that she wants to go home because she and her support system have a lot to talk about and she does not want to do it in the hospital. When I ask her about consideration of treatment for her cancer she tells me again she needs to speak with her support system and she needs to know what her treatment options are before she can make that decision. I have advised the patient that it appears that chemotherapy will be the most likely treatment option given the extent of the disease. I did not review with the patient to the abnormal findings of the CT of the brain or the possibility of radiation as she did not want me to elaborate on her current findings. When I asked her if she would like me to review the clinical findings since admission she reports that she would like her friends to be present before having this conversation. Patient is advised that she is unable to go home at this time giving the clinical findings she does not wish for me to elaborate during this visit. Patient indicates that she has a living will and designation her surrogate naming her friend, Nelly Cano as healthcare surrogate should she lose capacity. I have attempted to call her friend Nelly and a friend Esperanza to see if they are able to participate in this conversation left message for Esperanza and was unable to leave a message for her friend Nelly at this time. I will continue to try to contact her support system and arrange a time for a family meeting for further clarification of medical treatment goals. . Family/Friend Interactions: I have been unable to reach her friends, Nelly or Esperanza via phone today. Will continue to try to reach per pt request. 4:30pm: Call from friend, Esperanza. She indicates she is happy to partipcate in family meeting if patient wishes for her to be on the phone. She will be coming from [place] on Thursday at 1pm because she heard "things were bad." Update provided. Esperanza will have friendNelly call me to arrange time as I am not sure I ahve the correct number. I will notify Esperanza when family meeting arranged. Advance Directives Living Will: Completed, but not made available Health Care Surrogate: Completed, but not made available Health Care Surrogate Name and Number: Nelly Cano, friend/ [facility]: [phone] Documented care wishes:: Will request copy of written advance directives once I am able to reach her healthcare surrogate, Nelly Cano. Significant change in goals:: Medical treatment goals will be determined after we are able to arrange a meeting with patient and her friends. Objective Vital Signs: Vital Signs 10/05/17 16:00 10/05/17 16:06 10/05/17 17:20 Temperature 98.2 F Pulse Rate 99 H 98 H Respiratory Rate 20 Blood Pressure 175/77 H 163/82 H Pulse Oximetry 98 10/05/17 20:00 10/05/17 20:10 10/05/17 20:18 Temperature 97.7 F Pulse Rate 88 77 Respiratory Rate 18 16 Blood Pressure 171/88 H Pulse Oximetry 96 10/05/17 20:31 10/05/17 20:34 10/05/17 22:13 Temperature Pulse Rate 94 H Respiratory Rate 16 Blood Pressure 155/87 H Pulse Oximetry 97 10/05/17 23:01 10/06/17 00:00 10/06/17 01:52 Temperature 97.5 F L Pulse Rate 81 82 98 H Respiratory Rate 18 18 Blood Pressure 173/88 H Pulse Oximetry 97 10/06/17 03:40 10/06/17 03:43 10/06/17 07:43 Temperature 97.4 F L Pulse Rate 75 78 79 Respiratory Rate 16 Blood Pressure 146/78 H Pulse Oximetry 98 10/06/17 08:00 10/06/17 08:36 10/06/17 11:33 Temperature 98.6 F 97.6 F Pulse Rate 89 89 69 Respiratory Rate 18 24 20 Blood Pressure 160/85 H 185/92 H Pulse Oximetry 94 L 94 L 97 10/06/17 11:54 Temperature Pulse Rate Respiratory Rate Blood Pressure 169/89 H Pulse Oximetry Intake & Output 10/05/17 10/06/17 10/06/17 18:59 06:59 18:59 Intake Total 200 / 200 795 / 795 Output Total 750 / 750 Balance 200 / 200 45 / 45 Weight 108 kg 108 kg Intake: IV 675 / 675 Levaquin 750 mg Premix Inj 150 155 / 155 ML @ 100 mls/hr IV.SIG Q24H MAX Rx#:[id number] Aredia Inj 60 MG In NS Inj 500 520 / 520 ML @ 130 mls/hr IV.SIG ONCE ONE Rx#:[id number] Oral 200 / 200 120 / 120 Output: Urine 750 / 750 Other: # Voids 4 1 Physical Exam: CONSTITUTIONAL/GENERAL: This is an overweight, confused patient. TUBES/LINES/DRAINS: PIV. SKIN: No jaundice, rashes, or lesions. Ecchymoses on upper extremities. No wounds seen anteriorly. Skin temperature appropriate. Not diaphoretic. ENT: Hearing grossly normal. Nose without bleeding or purulent drainage. Mouth closed. CARDIOVASCULAR: Regular rate and rhythm without murmurs. RESPIRATORY/CHEST: Diminished breath sounds. GASTROINTESTINAL: Abdomen soft, non-tender, protuberant. Bowel sounds present. GENITOURINARY: Without palpable bladder distension. MUSCULOSKELETAL: Extremities without clubbing, cyanosis, or edema. No mottling or clubbing. NEUROLOGICAL: Awake and mildly confused. Answers questions appropriately. Moves all extremities. PSYCHIATRIC: Awake and alert, intermittently sarcastic, smiling. Diagnostic Tests Laboratory: Laboratory Results - last 72 hr 10/03/17 10/03/17 10/03/17 21:45 21:45 21:45 WBC 11.2 H RBC 5.13 Hgb 15.2 Hct 45.7 MCV 89.1 MCH 29.7 MCHC 33.3 RDW 13.9 Plt Count 336 MPV 8.0 Neut % (Auto) 68.4 Lymph % (Auto) 16.7 [place] % (Auto) 13.2 H Eos % (Auto) 0.9 Baso % (Auto) 0.8 Neut # (Auto) 7.7 Lymph # (Auto) 1.9 [place] # (Auto) 1.5 H Eos # (Auto) 0.1 Baso # (Auto) 0.1 WBC Differential . Differential Comment Auto diff final D-Dimer Quant (PE/DVT) 1.86 H Puncture Site Patient Temperature O2 Saturation ABG pH ABG pCO2 ABG pO2 ABG HCO3 ABG O2 Content ABG Base Excess ABG Methemoglobin Juve Test Hemoglobin Carboxyhemoglobin O2 Delivery Device Liter Flow Inspired O2 Critical Value Sodium 130 L Potassium 4.4 Chloride 94 L Carbon Dioxide 22.9 Anion Gap 13 BUN 24 H Creatinine 1.25 H Estimated GFR 43 L Random Glucose 118 H Calcium 12.7 H* Prot Corrected Calcium 12.1 H* Total Bilirubin 0.8 AST 55 H ALT 23 Alkaline Phosphatase 98 Total Protein 8.0 Albumin 3.4 10/04/17 10/04/17 10/04/17 07:13 07:15 16:35 WBC 8.2 RBC 4.83 Hgb 14.7 Hct 43.3 MCV 89.7 MCH 30.5 MCHC 34.0 RDW 13.8 Plt Count 283 MPV 7.6 Neut % (Auto) 86.6 H Lymph % (Auto) 9.8 [place] % (Auto) 2.9 Eos % (Auto) 0.3 Baso % (Auto) 0.4 Neut # (Auto) 7.1 Lymph # (Auto) 0.8 L [place] # (Auto) 0.2 Eos # (Auto) 0.0 Baso # (Auto) 0.0 WBC Differential . Differential Comment Auto diff final D-Dimer Quant (PE/DVT) Puncture Site Patient Temperature O2 Saturation ABG pH ABG pCO2 ABG pO2 ABG HCO3 ABG O2 Content ABG Base Excess ABG Methemoglobin Juve Test Hemoglobin Carboxyhemoglobin O2 Delivery Device Liter Flow Inspired O2 Critical Value Sodium 133 L 134 L Potassium 4.9 4.7 Chloride 99 101 Carbon Dioxide 21.5 22.5 Anion Gap 13 11 BUN 25 H 24 H Creatinine 1.11 H 0.96 Estimated GFR 49 L 58 L Random Glucose 116 H 122 H Calcium 12.0 H* 10.9 H D Prot Corrected Calcium 11.7 H* Total Bilirubin 0.7 AST 53 H ALT 23 Alkaline Phosphatase 94 Total Protein 7.6 Albumin 3.1 L 10/04/17 10/05/17 10/06/17 21:01 13:00 05:47 WBC 14.2 H RBC 4.54 Hgb 13.4 Hct 40.8 MCV 89.8 MCH 29.5 MCHC 32.8 RDW 14.1 Plt Count 298 MPV 7.6 Neut % (Auto) Lymph % (Auto) [place] % (Auto) Eos % (Auto) Baso % (Auto) Neut # (Auto) Lymph # (Auto) [place] # (Auto) Eos # (Auto) Baso # (Auto) WBC Differential Differential Comment D-Dimer Quant (PE/DVT) Puncture Site Left radial Patient Temperature 98.6 O2 Saturation 90 ABG pH 7.38 ABG pCO2 41 ABG pO2 67 ABG HCO3 23 ABG O2 Content 17.7 ABG Base Excess -1.0 ABG Methemoglobin 0.9 Juve Test Present Hemoglobin 14.0 Carboxyhemoglobin 0.8 O2 Delivery Device Nasal cannula Liter Flow 4.00 Inspired O2 21 Critical Value No Sodium 138 Potassium 4.1 Chloride 103 Carbon Dioxide 22.2 Anion Gap 13 BUN 25 H Creatinine 0.84 Estimated GFR 68 L Random Glucose 115 H Calcium 10.9 H Prot Corrected Calcium Total Bilirubin AST ALT Alkaline Phosphatase Total Protein Albumin 10/06/17 05:47 WBC RBC Hgb Hct MCV MCH MCHC RDW Plt Count MPV Neut % (Auto) Lymph % (Auto) [place] % (Auto) Eos % (Auto) Baso % (Auto) Neut # (Auto) Lymph # (Auto) [place] # (Auto) Eos # (Auto) Baso # (Auto) WBC Differential Differential Comment D-Dimer Quant (PE/DVT) Puncture Site Patient Temperature O2 Saturation ABG pH ABG pCO2 ABG pO2 ABG HCO3 ABG O2 Content ABG Base Excess ABG Methemoglobin Juve Test Hemoglobin Carboxyhemoglobin O2 Delivery Device Liter Flow Inspired O2 Critical Value Sodium 140 Potassium 4.0 Chloride 107 Carbon Dioxide 21.6 Anion Gap 11 BUN 24 H Creatinine 0.72 Estimated GFR 81 L Random Glucose 105 Calcium 11.0 H Prot Corrected Calcium Total Bilirubin AST ALT Alkaline Phosphatase Total Protein Albumin Result Diagrams: 10/06/17 05:47 10/06/17 05:47 Imaging: Chest X-Ray 10/03/17 21:32 CONCLUSION: Masslike density in the AP window region concerning for a central mass. Suggestion of multiple pulmonary nodules. CT examination the chest would be recommended for further evaluation. Ideally this would be performed with contrast given the potential central mass. Pulmonary Perfusion Imaging 10/04/17 00:00 CONCLUSION: 1. Low probability of pulmonary embolism Chest CT 10/04/17 00:12 CONCLUSION: Widespread neoplastic disease involving lungs, mediastinum, right breast, chest and abdominal wall, liver and upper abdomen as described. Abdomen/Pelvis CT 10/05/17 00:00 CONCLUSION: 1. Abnormal examination demonstrating multiple pulmonary nodules, multiple subcutaneous nodules, and 2 nodules in the right retroperitoneum and lateral to the left adrenal gland. The distribution and number of abnormalities suggest hematogenous process such as metastatic disease. Head CT 10/05/17 00:00 CONCLUSION: 1. Abnormal noncontrast CT brain demonstrating 2 or 3 masses in the left supratentorial brain. Recommend further characterization of these lesions and to evaluate for additional lesions using MRI of the brain with and without contrast. Bone Scan Nuclear Medicine 10/06/17 06:00 CONCLUSION: 1. There are areas of uptake within multiple bony structures most likely degenerative and possibly due to old trauma. No definite convincing evidence for metastatic disease based on this examination. Assessment and Plan - Disease Oriented Problem List (1) Lung cancer (2) Metastatic disease (3) Hypercalcemia (4) Renal insufficiency (5) Hypoxia (6) Osteoarthritis (7) COPD (chronic obstructive pulmonary disease) - Symptom Scale (1) Weakness 0-10 Scale: Unable to quantify (2) Pain 0-10 Scale: Unable to quantify (3) Dyspnea 0-10 Scale: Unable to quantify Pertinent Non-Medical Issues: Psychosocial: . Supported by her friends, Nelly and Esperanza, a brother and a nephew. 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 Spiritual: Unknown. Legal: Patient is not capacitated to make her own health care decisions, uncertain if she will regain capacity. Will need additional social history to determine legal healthcare proxy decision-maker. Ethical issues impacting care: No known concerns at this time. Important Contacts: * Nelly Cano, friend/HCS: [phone] (works evenings) * Esperanza Perez, friend: [phone] (will be here Thursday at 1pm) * Humble Lopez, brother: [phone] Prognosis: Patient with Lung cancer with widespread metastatic disease to bilateral lungs, subQ nodules, breast, liver, abdomen, brain and lymph nodes, hypercalcemia, overall prognosis appears poor. No evidence of bone mets. Hospice appropriate if goals are comfort oriented. Code Status: Full Code Plan: * Decision Maker: Patient appears capacitated to make her decisions, though given brain mets and hypercalcemia would recommend shared decision making with her health care surrogate. She indicates she has written advanced directives including a living will and designation of health care surrogate. She has named her friend, Nelly Cano as primary HCS. * FULL CODE - will attempt to clarify goals in when friends can assist. * Met with patient, she has more insightful today to her disease, she does not want to review medical findings in her case to date until her friends are present. She understands that she has been told prior to my visit that she has "lung, breast and liver cancer" and that she has a lot to talk about with her healthcare surrogate before making any additional decisions. She requests that we not discuss this any further today given the need for support. * Discussed with JESSIKA Wooten. * Have attempted to reach her HCS, Nelly Cano unable to leave message. Left message for her friend, Esperanza Perez [phone] to return call. * SYMPTOMS: Confusion: Secondary to hypercalcemia of malignancy. Aredia ordered. Avoid sedating medications. Will monitor. Pain: No obvious signs of pain during my visit. Potential sources include widespread metastatic disease. Would avoid pain medication at this time given her level of confusion. Dyspnea : Due to widespread metastatic disease. * Palliative care will continue to follow throughout hospital course to assist with symptom management and clarification of goals as needed. Attestation Attestation: To help prompt me to consider important information that might be impacting today's encounter and assessment, information from prior notes written by myself or my colleagues may have been "brought forward" into today's note. My signature on this note, however, is an attestation that I personally performed the exam, history, and/or decision-making noted today, and, unless otherwise indicated, the interactions with patient, family, and staff as well as the review of records all occurred today. I also attest that the listed assessment and stated plan reflect my best clinical judgment today based on the combination of historical information, prior notes, and today's exam/ interactions. When time spent is documented, it refers only to time spent today by the signer, or if indicated, combined time spent today by collaborating physician/nurse practitioner.
[2017-10-06] MEDS ORDERED: hydrALAZINE 10 MG Tablet PO PRN (16:15)
[2017-10-07] MEDS: Morphine Inj 4 MG/ML Vial IV.PUSH PRN ×2 (05:06→21:46)
[2017-10-07] MEDS: Morphine Sulfate 15 MG SR Tablet PO SCH ×2 (08:18→21:45)
[2017-10-07] MEDS: Metoprolol Tartrate 25 MG Tablet PO SCH ×2 (08:19→21:46)
[2017-10-07] MEDS: Senna/Docusate Sodium 8.6/50 MG Tablet PO SCH ×2 (08:19→21:47)
[2017-10-07] MEDS: guaiFENesin 600 MG ER Tablet PO SCH ×2 (08:19→21:45)
[2017-10-07] MEDS: Enoxaparin Inj 40 MG/0.4 ML Syringe SQ SCH (08:19)
[2017-10-07] MEDS: Furosemide 20 MG Tablet PO SCH ×2 (08:24→21:49)
--- NOTE | 2017-10-07 14:34 | P.PN ---
Physical Exam Vital signs: Vital Signs 10/06/17 15:35 10/06/17 15:40 10/06/17 15:41 Temperature 97.8 F Pulse Rate 73 77 Respiratory Rate 20 18 Blood Pressure 184/118 H Pulse Oximetry 98 99 10/06/17 18:00 10/06/17 19:13 10/06/17 19:14 Temperature Pulse Rate 87 87 Respiratory Rate 20 Blood Pressure 188/98 H Pulse Oximetry 10/06/17 20:06 10/06/17 20:55 10/06/17 23:21 Temperature 97.3 F L 97.2 F L Pulse Rate 112 H 99 H 74 Respiratory Rate 18 18 Blood Pressure 179/81 H 156/84 H Pulse Oximetry 97 98 10/07/17 00:01 10/07/17 04:08 10/07/17 04:50 Temperature Pulse Rate 69 83 Respiratory Rate Blood Pressure 182/87 H Pulse Oximetry 10/07/17 04:55 10/07/17 07:56 10/07/17 08:00 Temperature 97.7 F 97.6 F Pulse Rate 70 99 H 110 H Respiratory Rate 18 26 H 20 Blood Pressure 180/80 H 183/90 H Pulse Oximetry 96 94 L 94 L 10/07/17 12:00 Temperature 97.4 F L Pulse Rate 87 Respiratory Rate 20 Blood Pressure 127/72 Pulse Oximetry 97 Intake & Output 10/06/17 10/07/17 10/07/17 18:59 06:59 18:59 Intake Total 755 / 755 Output Total 1225 / 1225 Balance -470 / -470 Weight 108 kg 109.5 kg Intake: IV 155 / 155 Levaquin 750 mg Premix Inj 150 155 / 155 ML @ 100 mls/hr IV.SIG Q24H MAX Rx#:[id number] Oral 600 / 600 Output: Urine 1225 / 1225 Other: # Voids 4 Narrative: Subjective Interval history: F/up metastatic breast cancer. In bed appears imprpved today she is more awake and alert , oriented x3. No n/v/ d/c. No pain at this time. No fever or chills. Physical exam: GENERAL: female sleeping in bed NAD. Agitated on/off, in restraints. Pleasantly confused. SKIN: Warm and dry. HEENT: AT/NC. Pupils equal and round. MMM. NECK: Supple no tender LAD or JVD. HEART: Tachycardic no m/r/g. LUNGS: Course breath sounds with diffuse wheezing. ABDOMEN: +BS x4Q, soft, NT, ND. EXTREMITIES: No LE edema. 2+ pedal pulses. Assessment and Plan 67 YOWF with OA, COPD, spinal stenosis, and history of tobacco abuse admitted on 10/03 with shortness of breath, vomiting, and diffuse tenderness throughout her body. She had recently been diagnosed with a right breast cancer and is awaiting biopsy results from [facility]. 1. Metastatic breast cancer - In the process of working up her SOB, CT chest revealed widespread neoplastic disease involving the lung, mediastinum, right breast, chest and abdominal wall , liver, and upper abdomen - Check CT A/P to further evaluate extent of metastases - Oncology consulted, recommended started an aromatase inhibitor while waiting for pathology results - Started Anastrazole - Consult palliative care to clarify goals and wishes - Pain control 2. Dyspnea - Elevated D-dimer but patient w/ severe contrast allergy so VQ scan was done which showed low probability of PE - CT chest showing widespread metastatic disease as above - Supplemental O2 3. Hypercalcemia - Calcium 12.7 on admission, down to 10.9 yesterday afternoon after IV hydration - Continue to monitor, today's labs pending - Likely secondary to malignancy as well as possible bony involvement - IV fluid hydration 4. BERNICE, resolved - Creatinine 1.25 on admission, down to 0.96 this morning - BUN elevated at 24 - Continue IV hydration 5. COPD exacerbation - Pt with increased sputum, cough, and SOB - Continue Levaquin and Solumedrol - DuoNeb - Supplemental O2 6. Anxiety- Ativan 1 mg PO Q4 PRN Agitated on/off 7. HTN - BPs significantly elevated - Start metoprolol 25 mg PO BID since also tachycardic - Titrate as needed - Continue to monitor DVT prophylaxis: Lovenox Discussed with the patient, nurse Results - Labs CBC & Chem 7: 10/06/17 05:47 10/06/17 05:47 Assessment and Plan - Assessment (1) COPD (chronic obstructive pulmonary disease) Code(s): J44.9 - Chronic obstructive pulmonary disease, unspecified Status: Chronic (2) Hypoxia Code(s): R09.02 - Hypoxemia Status: Acute (3) Metastatic disease Code(s): C79.9 - Secondary malignant neoplasm of unspecified site Status: Acute (4) Hypercalcemia Code(s): E83.52 - Hypercalcemia Status: Acute (5) Renal insufficiency Code(s): N28.9 - Disorder of kidney and ureter, unspecified Status: Acute
--- NOTE | 2017-10-07 18:14 | P.PNPAL ---
Reason for Visit Reason for visit: a. To assist with evaluation and management of symptoms including: pain. b. To assist medical decision maker(s) with: better understanding of current medical conditions; weighing benefits/burdens of medical treatment options; making medical treatment decisions. Subjective Subjective/Interval History: Patient is seen and examined in room. Patient's friend at bedside, she reports she is here from [place] to help care for Ms. Young. Patient is awake and alert, she tells me she spoke with oncology and that she knows the cancer is everywhere (asks me to write it down for her which I did) and that she wants to go home MAY[place]. I advised with current health, brain mets and related risks the only way she would be able to go home is with hospice support. She says she has heard that and wants to be home by tomorrow. She elects DNR and wants to home with hospice. She does not want to talk about anything else but how I can help get her home. Her friend agrees this has been in keeping with her wishes and that she came here to help care for the patient. Additional friends coming later this week from out of state to help. Afebrile. Intermittent hypertension. On oxygen 2 LPM via [place] with oxygen sats 94- 97%. She reports generalized pain rates 8/10 from being in bed. She requests pain medication, nurse notified. On Oramorph 15mg PO every 12 hours. She reports relief with current PRN Morphine 4mg IV. Family/Friend Interactions: Patients has elected NO CODE and wants to go home with hospice. Advance Directives Living Will: Completed, but not made available Health Care Surrogate: Completed, but not made available Health Care Surrogate Name and Number: Nelly Cano, friend/ [facility]: [phone] Documented care wishes:: Will request copy of written advance directives once I am able to reach her healthcare surrogate, Nelly Cano. Significant change in goals:: Patients has elected NO CODE and wants to go home with hospice. Objective Vital Signs: Vital Signs 10/06/17 18:00 10/06/17 19:13 10/06/17 19:14 Temperature Pulse Rate 87 87 Respiratory Rate 20 Blood Pressure 188/98 H Pulse Oximetry 10/06/17 20:06 10/06/17 20:55 10/06/17 23:21 Temperature 97.3 F L 97.2 F L Pulse Rate 112 H 99 H 74 Respiratory Rate 18 18 Blood Pressure 179/81 H 156/84 H Pulse Oximetry 97 98 10/07/17 00:01 10/07/17 04:08 10/07/17 04:50 Temperature Pulse Rate 69 83 Respiratory Rate Blood Pressure 182/87 H Pulse Oximetry 10/07/17 04:55 10/07/17 07:56 10/07/17 08:00 Temperature 97.7 F 97.6 F Pulse Rate 70 99 H 110 H Respiratory Rate 18 26 H 20 Blood Pressure 180/80 H 183/90 H Pulse Oximetry 96 94 L 94 L 10/07/17 12:00 Temperature 97.4 F L Pulse Rate 87 Respiratory Rate 20 Blood Pressure 127/72 Pulse Oximetry 97 Intake & Output 10/06/17 10/07/17 10/07/17 18:59 06:59 18:59 Intake Total 755 / 755 Output Total 1225 / 1225 Balance -470 / -470 Weight 108 kg 109.5 kg Intake: IV 155 / 155 Levaquin 750 mg Premix Inj 150 155 / 155 ML @ 100 mls/hr IV.SIG Q24H MAX Rx#:[id number] Oral 600 / 600 Output: Urine 1225 / 1225 Other: # Voids 4 Physical Exam: CONSTITUTIONAL/GENERAL: This is an overweight, confused patient. TUBES/LINES/DRAINS: PIV. SKIN: No jaundice, rashes, or lesions. Ecchymoses on upper extremities and right breast. No wounds seen anteriorly. Skin temperature appropriate. Not diaphoretic. CARDIOVASCULAR: Regular rate and rhythm without murmurs. RESPIRATORY/CHEST: Diminished breath sounds. GASTROINTESTINAL: Abdomen soft, non-tender, protuberant. Bowel sounds present. GENITOURINARY: Without palpable bladder distension. MUSCULOSKELETAL: Extremities without clubbing, cyanosis, or edema. No mottling or clubbing. NEUROLOGICAL: Awake and alert. Answers questions appropriately. Moves all extremities. PSYCHIATRIC: Awake and alert, intermittently sarcastic, smiling. Diagnostic Tests Laboratory: Laboratory Results - last 72 hr 10/04/17 10/04/17 10/05/17 16:35 21:01 13:00 WBC RBC Hgb Hct MCV MCH MCHC RDW Plt Count MPV Puncture Site Left radial Patient Temperature 98.6 O2 Saturation 90 ABG pH 7.38 ABG pCO2 41 ABG pO2 67 ABG HCO3 23 ABG O2 Content 17.7 ABG Base Excess -1.0 ABG Methemoglobin 0.9 Juve Test Present Hemoglobin 14.0 Carboxyhemoglobin 0.8 O2 Delivery Device Nasal cannula Liter Flow 4.00 Inspired O2 21 Critical Value No Sodium 134 L 138 Potassium 4.7 4.1 Chloride 101 103 Carbon Dioxide 22.5 22.2 Anion Gap 11 13 BUN 24 H 25 H Creatinine 0.96 0.84 Estimated GFR 58 L 68 L Random Glucose 122 H 115 H Calcium 10.9 H D 10.9 H 10/06/17 10/06/17 05:47 05:47 WBC 14.2 H RBC 4.54 Hgb 13.4 Hct 40.8 MCV 89.8 MCH 29.5 MCHC 32.8 RDW 14.1 Plt Count 298 MPV 7.6 Puncture Site Patient Temperature O2 Saturation ABG pH ABG pCO2 ABG pO2 ABG HCO3 ABG O2 Content ABG Base Excess ABG Methemoglobin Juve Test Hemoglobin Carboxyhemoglobin O2 Delivery Device Liter Flow Inspired O2 Critical Value Sodium 140 Potassium 4.0 Chloride 107 Carbon Dioxide 21.6 Anion Gap 11 BUN 24 H Creatinine 0.72 Estimated GFR 81 L Random Glucose 105 Calcium 11.0 H Result Diagrams: 10/06/17 05:47 10/06/17 05:47 Imaging: Chest X-Ray 10/03/17 21:32 CONCLUSION: Masslike density in the AP window region concerning for a central mass. Suggestion of multiple pulmonary nodules. CT examination the chest would be recommended for further evaluation. Ideally this would be performed with contrast given the potential central mass. Pulmonary Perfusion Imaging 10/04/17 00:00 CONCLUSION: 1. Low probability of pulmonary embolism Chest CT 10/04/17 00:12 CONCLUSION: Widespread neoplastic disease involving lungs, mediastinum, right breast, chest and abdominal wall, liver and upper abdomen as described. Abdomen/Pelvis CT 10/05/17 00:00 CONCLUSION: 1. Abnormal examination demonstrating multiple pulmonary nodules, multiple subcutaneous nodules, and 2 nodules in the right retroperitoneum and lateral to the left adrenal gland. The distribution and number of abnormalities suggest hematogenous process such as metastatic disease. Head CT 10/05/17 00:00 CONCLUSION: 1. Abnormal noncontrast CT brain demonstrating 2 or 3 masses in the left supratentorial brain. Recommend further characterization of these lesions and to evaluate for additional lesions using MRI of the brain with and without contrast. Bone Scan Nuclear Medicine 10/06/17 06:00 CONCLUSION: 1. There are areas of uptake within multiple bony structures most likely degenerative and possibly due to old trauma. No definite convincing evidence for metastatic disease based on this examination. Assessment and Plan - Symptom Scale (1) Weakness 0-10 Scale: Unable to quantify (2) Pain 0-10 Scale: 8 (3) Dyspnea 0-10 Scale: 1 Pertinent Non-Medical Issues: Psychosocial: . Supported by her friends, Nelly and Esperanza, a brother and a nephew. 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 Spiritual: Unknown. Legal: Patient is not capacitated to make her own health care decisions, uncertain if she will regain capacity. Will need additional social history to determine legal healthcare proxy decision-maker. Ethical issues impacting care: No known concerns at this time. Important Contacts: * Nelly Cano, friend/HCS: [phone] (works evenings) * Esperanza Perez, friend: [phone] (will be here Thursday at 1pm) * Humble Lopez, brother: [phone] Prognosis: Patient with Lung cancer with widespread metastatic disease to bilateral lungs, subQ nodules, breast, liver, abdomen, brain and lymph nodes, hypercalcemia, overall prognosis appears poor. No evidence of bone mets. Hospice appropriate if goals are comfort oriented. Code Status: No Code DNR Plan: * Decision Maker: Patient appears capacitated to make her decisions, though given brain mets and hypercalcemia would recommend shared decision making with her health care surrogate. She indicates she has written advanced directives including a living will and designation of health care surrogate. She has named her friend, Nelly Cano as primary HCS. * NO CODE * Met with patient with friend at bedside. She elects DNR and wants to home with hospice in AM. She does not want to talk about anything else but how I can help get her home. Her friend agrees this has been in keeping with her wishes and that she came here to help care for the patient. Additional friends coming later this week from out of state to help. * Discussed with nurse. * Hospice consulted. * SYMPTOMS: Confusion: Secondary to hypercalcemia of malignancy. Aredia ordered. Avoid sedating medications. Will monitor. Pain: No obvious signs of pain during my visit. Potential sources include widespread metastatic disease. Would avoid pain medication at this time given her level of confusion. Dyspnea : Due to widespread metastatic disease. * Palliative care will continue to follow throughout hospital course to assist with symptom management and clarification of goals as needed. Attestation Collaborating MD Comments: Chart reviewed. Case discussed with palliative care nurse practitioner. Above LICENSED BONDSMAN note reviewed and I concur. . Attestation: To help prompt me to consider important information that might be impacting today's encounter and assessment, information from prior notes written by myself or my colleagues may have been "brought forward" into today's note. My signature on this note, however, is an attestation that I personally performed the exam, history, and/or decision-making noted today, and, unless otherwise indicated, the interactions with patient, family, and staff as well as the review of records all occurred today. I also attest that the listed assessment and stated plan reflect my best clinical judgment today based on the combination of historical information, prior notes, and today's exam/ interactions. When time spent is documented, it refers only to time spent today by the signer, or if indicated, combined time spent today by collaborating physician/nurse practitioner.
[2017-10-08] MEDS: Morphine Inj 4 MG/ML Vial IV.PUSH PRN ×4 (00:42→12:32)
[2017-10-08] MEDS: Enoxaparin Inj 40 MG/0.4 ML Syringe SQ SCH (08:42)
[2017-10-08] MEDS: Senna/Docusate Sodium 8.6/50 MG Tablet PO SCH ×2 (08:42→20:09)
[2017-10-08] MEDS: Metoprolol Tartrate 25 MG Tablet PO SCH ×2 (08:42→20:09)
[2017-10-08] MEDS: guaiFENesin 600 MG ER Tablet PO SCH ×2 (08:42→20:09)
[2017-10-08] MEDS: Morphine Sulfate 15 MG SR Tablet PO SCH ×2 (08:43→20:09)
--- NOTE | 2017-10-08 11:33 | P.DS ---
Date of admission: 10/04/17 02:16 Primary care physician: UNKNOWN Brief History from admission: This is a 67-year-old female with a PMH of COPD and recent diagnosis of Breast Mass with metastatic Disease who presents to ER with complaints of SOB and productive cough x1 wk. Seen in ER on 09/20/17 for c/o shoulder pain, d/c'd w/ Flexeril and Lidoderm patches. States symptoms persisted and was seen at and found to have breast mass w/ liver and lung lesions, currently undergoing work up, not yet on chemotherapy. Now w/ progressive SOB, notes associated wheezing and productive cough w/ green-colored sputum. No sick contacts. On arrival, O2 sat 80% on RA per report. BP 182/85, HR 118, Afebrile. WBC 11.2. Ca 12.7. Creatinine 1.25. D-dimer 1.86. CXR w/ masslike density concerning for central mass, multiple pulmonary nodules. CTA not done due to severe contrast allergy. CT Chest w/ widespread metastatic disease involving lung, mediastinum, right breast, chest and abdominal wall, liver and upper abdomen. DS: Diagnosis - Discharge Diagnosis (1) COPD (chronic obstructive pulmonary disease) Status: Chronic (2) Hypoxia Status: Acute (3) Metastatic disease Status: Acute (4) Hypercalcemia Status: Acute (5) Renal insufficiency Status: Acute DS: Summary Hospital Course: Clinical update at [place]. Complaint of headache in the morning. No fever or chills. No change in visin. More awake and alert. Patient and family at bedside decided for hospice care at home. 67 YOWF with OA, COPD, spinal stenosis, and history of tobacco abuse admitted on 10/03 with shortness of breath, vomiting, and diffuse tenderness throughout her body. She had recently been diagnosed with a right breast cancer [facility]. She was found to have hypercalcemia and a CT scan of the chest showed widespread neoplastic disease involving the lung, mediastinum, the right breast. There is also a lesion in the chest, abdominal wall, liver, upper abdomen. Surgical pathology report from . Collected 09/28/17, right chest wall mass, core biopsy: Poorly differentiated adenocarcinoma, primary of the lung. The tumor is associated with extensive necrosis. Classified as primary adenocarcinoma of the lung. Patient and family at bedside decided for hospice care at home. [place] home with hospice 1. Metastatic breast cancer - In the process of working up her SOB, CT chest revealed widespread neoplastic disease involving the lung, mediastinum, right breast, chest and abdominal wall , liver, and upper abdomen - Check CT A/P to further evaluate extent of metastases - Oncology consulted, recommended started an aromatase inhibitor while waiting for pathology results - Started Anastrazole - Consult palliative care to clarify goals and wishes, patient and family decided for home with hospice - Pain control - She was found to have hypercalcemia and a CT scan of the chest showed widespread neoplastic disease involving the lung, mediastinum, the right breast. There is also a lesion in the chest, abdominal wall, liver, upper abdomen. - Surgical pathology report from . Collected 09/28/17, right chest wall mass, core biopsy: Poorly differentiated adenocarcinoma, primary of the lung. The tumor is associated with extensive necrosis. Classified as primary adenocarcinoma of the lung. 2. Dyspnea - Elevated D-dimer but patient w/ severe contrast allergy so VQ scan was done which showed low probability of PE - CT chest showing widespread metastatic disease as above - Supplemental O2 3. Hypercalcemia - Calcium 12.7 on admission, down to 10.9 yesterday afternoon after IV hydration - Continue to monitor, today's labs pending - Likely secondary to malignancy as well as possible bony involvement - IV fluid hydration 4. BERNICE, resolved - Creatinine 1.25 on admission, down to 0.96 this morning - BUN elevated at 24 - Continue IV hydration 5. COPD exacerbation - Pt with increased sputum, cough, and SOB - Continue Levaquin and Solumedrol - DuoNeb - Supplemental O2 6. Anxiety- Ativan 1 mg PO Q4 PRN Agitated on/off 7. HTN - BPs significantly elevated - Start metoprolol 25 mg PO BID since also tachycardic - Titrate as needed - Continue to monitor DVT prophylaxis: Lovenox - Time Spent with Patient Total time spent providing and/or coordinating discharge services: Greater than 30 minutes - Quality: VTE Deep Vein Thrombosis/Pulmonary Embolism Present on Admission: No Exam Vital signs: Vital Signs 10/07/17 12:00 10/07/17 16:00 10/07/17 20:00 Temperature 97.4 F L 98 F Pulse Rate 87 93 H Respiratory Rate 20 18 18 Blood Pressure 127/72 143/90 H Pulse Oximetry 97 94 L 10/07/17 20:42 10/08/17 00:00 10/08/17 04:00 Temperature 99.2 F 98 F Pulse Rate 64 63 Respiratory Rate 16 Blood Pressure 169/94 H 161/84 H Pulse Oximetry 93 L 93 L 98 10/08/17 08:59 10/08/17 10:11 Temperature 99.0 F Pulse Rate 62 100 H Respiratory Rate 16 Blood Pressure 203/106 H Pulse Oximetry 90 L Intake & Output 10/07/17 10/08/17 10/08/17 18:59 06:59 18:59 Intake Total 390 / 390 Balance 390 / 390 Weight 104 kg Intake: IV 150 / 150 Levaquin 750 mg Premix Inj 150 150 / 150 ML @ 100 mls/hr IV.SIG Q24H MAX Rx#:[id number] Oral 240 / 240 Other: # Voids 2 Narrative: GENERAL: female sleeping in bed NAD. HEENT: AT/NC. Pupils equal and round. MMM. NECK: Supple no tender LAD or JVD. HEART: Tachycardic no m/r/g. LUNGS: Course breath sounds with diffuse wheezing. ABDOMEN: +BS x4Q, soft, NT, ND. EXTREMITIES: No LE edema. 2+ pedal pulses. Results Procedures completed during hospitalization: no procedures - Impressions ITS Impressions Chest X-Ray 10/03/17 21:32 CONCLUSION: Masslike density in the AP window region concerning for a central mass. Suggestion of multiple pulmonary nodules. CT examination the chest would be recommended for further evaluation. Ideally this would be performed with contrast given the potential central mass. Pulmonary Perfusion Imaging 10/04/17 00:00 CONCLUSION: 1. Low probability of pulmonary embolism Chest CT 10/04/17 00:12 CONCLUSION: Widespread neoplastic disease involving lungs, mediastinum, right breast, chest and abdominal wall, liver and upper abdomen as described. Abdomen/Pelvis CT 10/05/17 00:00 CONCLUSION: 1. Abnormal examination demonstrating multiple pulmonary nodules, multiple subcutaneous nodules, and 2 nodules in the right retroperitoneum and lateral to the left adrenal gland. The distribution and number of abnormalities suggest hematogenous process such as metastatic disease. Head CT 10/05/17 00:00 CONCLUSION: 1. Abnormal noncontrast CT brain demonstrating 2 or 3 masses in the left supratentorial brain. Recommend further characterization of these lesions and to evaluate for additional lesions using MRI of the brain with and without contrast. Bone Scan Nuclear Medicine 10/06/17 06:00 CONCLUSION: 1. There are areas of uptake within multiple bony structures most likely degenerative and possibly due to old trauma. No definite convincing evidence for metastatic disease based on this examination. Discharge Plan - Discharge Disposition Patient Disposition: 50 Hospice/Home - Discharge Condition Condition: Serious - Discharge Order Discharge Orders: Discharge Order (Routine); Ordered 10/08/17 Ordered By: Radha Marrufo - Physicians Team Primary Care Provider: UNKNOWN, Attending Provider: Radha Marrufo Other Providers: Cele Massey MD ; Spencer Burton MD ; Shruti Bahena ; Enoch Johnson MD
[2017-10-08] MEDS: Furosemide 20 MG Tablet PO SCH (11:59)
--- NOTE | 2017-10-08 18:47 | P.PN ---
Physical Exam Vital signs: Vital Signs 10/07/17 20:00 10/07/17 20:42 10/08/17 00:00 Temperature 98 F 99.2 F Pulse Rate 93 H 64 Respiratory Rate 18 16 Blood Pressure 143/90 H 169/94 H Pulse Oximetry 94 L 93 L 93 L 10/08/17 04:00 10/08/17 08:59 10/08/17 10:11 Temperature 98 F 99.0 F Pulse Rate 63 62 100 H Respiratory Rate 16 Blood Pressure 161/84 H 203/106 H Pulse Oximetry 98 90 L 10/08/17 12:11 10/08/17 12:30 Temperature 98.4 F Pulse Rate 100 H 91 H Respiratory Rate 16 Blood Pressure 153/79 H Pulse Oximetry 91 L Intake & Output 10/07/17 10/08/17 10/08/17 18:59 06:59 18:59 Intake Total 390 / 390 Balance 390 / 390 Weight 104 kg Intake: IV 150 / 150 Levaquin 750 mg Premix Inj 150 150 / 150 ML @ 100 mls/hr IV.SIG Q24H MAX Rx#:[id number] Oral 240 / 240 Other: # Voids 2 Narrative: Subjective Interval history: F/up metastatic breast cancer. Complaint of headache in the morning. No fever or chills. No change in vision. More awake and alert. Patient and family at bedside decided for hospice care at home. Physical exam: GENERAL: female sleeping in bed NAD. Agitated on/off, in restraints. Pleasantly confused. SKIN: Warm and dry. HEENT: AT/NC. Pupils equal and round. MMM. NECK: Supple no tender LAD or JVD. HEART: Tachycardic no m/r/g. LUNGS: Course breath sounds with diffuse wheezing. ABDOMEN: +BS x4Q, soft, NT, ND. EXTREMITIES: No LE edema. 2+ pedal pulses. A/P : 67 YOWF with OA, COPD, spinal stenosis, and history of tobacco abuse admitted on 10/03 with shortness of breath, vomiting, and diffuse tenderness throughout her body. She had recently been diagnosed with a right breast cancer [facility]. She was found to have hypercalcemia and a CT scan of the chest showed widespread neoplastic disease involving the lung, mediastinum, the right breast. There is also a lesion in the chest, abdominal wall, liver, upper abdomen. Surgical pathology report from . Collected 09/28/17, right chest wall mass, core biopsy: Poorly differentiated adenocarcinoma, primary of the lung. The tumor is associated with extensive necrosis. Classified as primary adenocarcinoma of the lung. Patient and family at bedside decided for hospice care at home. [place] home with hospice 1. Metastatic breast cancer - In the process of working up her SOB, CT chest revealed widespread neoplastic disease involving the lung, mediastinum, right breast, chest and abdominal wall , liver, and upper abdomen - Check CT A/P to further evaluate extent of metastases - Oncology consulted, recommended started an aromatase inhibitor while waiting for pathology results - Started Anastrazole - Consult palliative care to clarify goals and wishes, patient and family decided for home with hospice - Pain control - She was found to have hypercalcemia and a CT scan of the chest showed widespread neoplastic disease involving the lung, mediastinum, the right breast. There is also a lesion in the chest, abdominal wall, liver, upper abdomen. - Surgical pathology report from . Collected 09/28/17, right chest wall mass, core biopsy: Poorly differentiated adenocarcinoma, primary of the lung. The tumor is associated with extensive necrosis. Classified as primary adenocarcinoma of the lung. 2. Dyspnea - Elevated D-dimer but patient w/ severe contrast allergy so VQ scan was done which showed low probability of PE - CT chest showing widespread metastatic disease as above - Supplemental O2 3. Hypercalcemia - Calcium 12.7 on admission, down to 10.9 yesterday afternoon after IV hydration - Continue to monitor, today's labs pending - Likely secondary to malignancy as well as possible bony involvement - IV fluid hydration 4. BERNICE, resolved - Creatinine 1.25 on admission, down to 0.96 this morning - BUN elevated at 24 - Continue IV hydration 5. COPD exacerbation - Pt with increased sputum, cough, and SOB - Continue Levaquin and Solumedrol - DuoNeb - Supplemental O2 6. Anxiety- Ativan 1 mg PO Q4 PRN Agitated on/off 7. HTN - BPs significantly elevated - Start metoprolol 25 mg PO BID since also tachycardic - Titrate as needed - Continue to monitor DVT prophylaxis: Lovenox Discussed with the patient, nurse, family at bedside Results - Labs CBC & Chem 7: 10/06/17 05:47 10/06/17 05:47 - Procedures no procedures Assessment and Plan - Assessment (1) COPD (chronic obstructive pulmonary disease) Code(s): J44.9 - Chronic obstructive pulmonary disease, unspecified Status: Chronic (2) Hypoxia Code(s): R09.02 - Hypoxemia Status: Acute (3) Metastatic disease Code(s): C79.9 - Secondary malignant neoplasm of unspecified site Status: Acute (4) Hypercalcemia Code(s): E83.52 - Hypercalcemia Status: Acute (5) Renal insufficiency Code(s): N28.9 - Disorder of kidney and ureter, unspecified Status: Acute
== END 2017-10-08 20:15 | disposition hospice, home (50) ==
LOC: NEPC 20:38 → NEDA 10-04 02:16 → NEPGCP 10-04 03:52 → HCIN 10-04 23:18
PROVIDERS: ADMIT Hospitalist; ATTEND Hospitalist